=== PATIENT | male | born 1995 | race African-American/Black ===

== ENCOUNTER 2019-10-07 06:54 | Emergency (ER) | payer OTHER ==
[~2019-10-07] VITALS: Ht 185.4 cm; Wt 96.8 kg
[2019-10-07] MEDS ORDERED: tylenol (07:04)
[2019-10-07] MEDS ORDERED: GI COCKTAIL 50ML BTL(HYOSCYAMINE/MAALOX/LIDOCAINE VISCOUS)(1:3:1) PO ONE (07:30)
--- NOTE | 2019-10-07 08:04 | ECGEPIP ---
[facility] - ED Test Date: 2019-10-07 Pat Name: MICKEY EY Department: Room: - Gender: Male Assurance Senior Manager: GRANT : 1995 Requested By: SHANNAN KAPLAN Order Number: [id number] Reading MD: García Mejía Measurements Intervals [place] Rate: 63 P: [place]: 0 QRS: 97 QRSD: 156 T: -8 QT: 434 QTc: 444 Interpretive Statements ATRIAL FIBRILLATION vs JUNCTIONAL ESCAPE RHYTHM RIGHT BUNDLE BRANCH BLOCK Electronically Signed on 10-07-2019 8:04:10 EST by García Mejía
--- NOTE | 2019-10-07 08:06 | ECGEPIP ---
[facility] - ED Test Date: 2019-10-07 Pat Name: MICKEY YE Department: Room: - Gender: Male Service Associate: ILIANA : 1995 Requested By: SHANNAN KAPLAN Order Number: [id number] Reading MD: García Mejía Measurements Intervals [place] Rate: 58 P: [place]: 0 QRS: 91 QRSD: 161 T: -15 QT: 434 QTc: 430 Interpretive Statements ATRIAL FIBRILLATION WITH SLOW VENTRICULAR RESPONSE VS JUNCTIONAL ESCAPE RIGHT BUNDLE BRANCH BLOCK Electronically Signed on 10-07-2019 8:05:55 EST by García Mejía
[2019-10-07 08:24] LABS: BASO % 0.4 % (0.0-1.0); EOS % 0.9 % (0.0-3.0); HEMATOCRIT 45.7 % (42.0-52.0); HEMOGLOBIN 15.1 g/dl (13.5-17.5); LYMPH # 1.7 10^3/uL (1.5-5.0); LYMPH % 37.9 % (24.0-44.0); MEAN CORPUSCULAR HEMOGLOBIN 30.4 pg (27.0-33.0); MONO # 0.3 10^3/uL (0.0-0.8); MONO % 6.1 % (0.0-5.0); NEUTROPHILS # 2.5 10^3/uL (1.5-8.5); NEUTROPHILS % 54.3 % (36.0-66.0); PLATELET COUNT, AUTOMATED 269 10^3/uL (150-450); RED BLOOD COUNT 4.97 10^6/uL (4.30-6.10); WHITE BLOOD COUNT 4.6 10^3/uL (4.0-10.0)
[2019-10-07 08:53] LABS: ALBUMIN 3.9 GM/DL (3.2-5.2); ALT/SGPT 21 U/L (12-78); BILIRUBIN,DIRECT 0.1 MG/DL (0.0-0.2); BILIRUBIN,TOTAL 0.4 MG/DL (0.2-1.0); BLOOD UREA NITROGEN 12 MG/DL (7-18); CALCIUM LEVEL 8.6 MG/DL (8.5-10.1); CARBON DIOXIDE LEVEL 27 MEQ/L (21-32); CHLORIDE LEVEL 107 MEQ/L (98-107); CK-MB VALUE MASS 2.3 NG/ML (<3.6); CPK CREATINE PHOSPHOKINASE 522 U/L (39-308); GLOMERULAR FILTRATION RATE > 60.0 (>60); GLUCOSE, FASTING 102 MG/DL (70-100); LIPASE 156 U/L (73-393); MB/CK RELATIVE INDEX 0.44 (< OR =4); SODIUM LEVEL 139 MEQ/L (136-145); TOTAL PROTEIN 7.6 GM/DL (6.4-8.2); TROPONIN I < 0.02 NG/ML (< 0.10)
--- NOTE | 2019-10-07 08:57 | REP ---
Chest, TWO VIEWS: There is no evidence of acute infiltrate. No pleural effusion is seen. The heart is normal in size. The mediastinal silhouette is unremarkable. The visualized osseous structures are intact. IMPRESSION: No acute pulmonary disease. Electronically Signed by Tim Garcia MD 10/08/2019 01:26 P
[2019-10-07] MEDS ORDERED: NS 1,000 ML IV ONE (09:15)
[2019-10-07] MEDS ORDERED: METOCLOPRAMIDE INJ 10MG/2ML VIAL (J2765) IV ONE (09:15)
[2019-10-07] MEDS ORDERED: ISOVUE-370 76% 100ML VIAL (Q9967) As Ordered ONE (10:51)
--- NOTE | 2019-10-07 11:24 | REP ---
CT of the abdomen and pelvis with IV contrast, without bowel contrast for abdominal pain radiating to the back: There are no comparisons. The visualized lung rueda are unremarkable. There is a 11 mm hypodensity in the dome of the liver posteriorly vascular flow with the periphery, likely a small hemangioma. There is a second small hemangioma laterally in the dome of the liver measuring 7 ml. The hepatic parenchyma is otherwise homogeneous. There are multiple gallbladder calculi near the neck of the gallbladder. A few these calculi may have the proximal cystic duct. There is no intrahepatic or extrahepatic biliary duct dilation. The gallbladder is mildly distended. The pancreas and spleen are unremarkable. The adrenals are unremarkable. The kidneys are unremarkable. The abdominal aorta is unremarkable. There is no periaortic adenopathy or mass. There is no bowel distension. The mesentery is unremarkable. Pelvis: The appendix is unremarkable. There is no ascites or adenopathy. The bladder is unremarkable. The pelvic bowel loops are unremarkable. Impression: Cholelithiasis. A few of the gallbladder calculi. May been of the proximal cystic duct. The gallbladder is mildly distended. There is no intrahepatic or extrahepatic biliary duct dilatation. Small hemangiomas in the dome of the liver. Otherwise, essentially negative CT of the abdomen and pelvis. Electronically Signed by Tim Ivey MD 10/07/2019 11:15 A
[2019-10-07] MEDS ORDERED: NORC1TAB7 PO (13:29)
[2019-10-07] MEDS ORDERED: ONDA4TAB6 PO (13:29)
[2019-10-07 14:23] VITALS: BP 137/77
--- NOTE | 2019-10-07 14:24 | REP ---
GALLBLADDER ULTRASOUND: Real-time sonographic evaluation of the right upper quadrant performed. Gallstones are seen in the gallbladder. There is no gallbladder wall thickening or free fluid. There is no intrahepatic or extrahepatic biliary dilatation, common bile duct measuring 4 mm. Two hyperechoic nodules are seen at the dome of the liver measuring 1.3 and 1.4 cm in diameter. These are most consistent with hemangiomas. Pancreas cannot be visualized due to overlying bowel gas. Right kidney demonstrates no hydronephrosis with normal size 10.7 cm in length. IMPRESSION: Gallstones in the gallbladder without evidence of gallbladder wall thickening, pericholecystic fluid or biliary dilatation. Electronically Signed by Tim Garcia MD 10/08/2019 01:40 P
== END 2019-10-07 14:40 | disposition home or self-care (01) ==
LOC: M ED 06:54
DX: K80.20 Calculus of gallbladder without cholecystitis without obstruction (principal); R94.31 Abnormal electrocardiogram [ECG] [EKG]; F17.210 Nicotine dependence, cigarettes, uncomplicated
CPT/HCPCS: 71046; 74177; 76705; 80048; 80076; 82550; 82553; 83690; 84484; 85025; 93005; 93041; 96361; 96374; 99284; J2765; Q9967

== ENCOUNTER 2020-01-14 12:56 | Inpatient (IN) | payer OTHER ==
[~2020-01-14] VITALS: Ht 188 cm; Wt 97.7 kg
[~2020-01-14 12:56] MED LIST: NORC1TAB7 PO; ONDA4TAB6 PO; tylenol
[2020-01-14 13:39] LABS: HEMATOCRIT 45.9 % (42.0-52.0); HEMOGLOBIN 15.8 g/dl (13.5-17.5); MEAN CORPUSCULAR HEMOGLOBIN 31.1 pg (27.0-33.0); MEAN CORPUSCULAR HGB CONC 34.4 g/dl (32.0-36.5); MEAN CORPUSCULAR VOLUME 90.4 fl (80.0-96.0); PLATELET COUNT, AUTOMATED 255 10^3/uL (150-450); RED BLOOD COUNT 5.08 10^6/uL (4.30-6.10); WHITE BLOOD COUNT 4.9 10^3/uL (4.0-10.0)
--- NOTE | 2020-01-14 13:50 | REP ---
Head CT without contrast: History: New onset hallucinations. Comparison study: There is no comparison brain imaging. CT findings: Bone window settings demonstrate an intact bony calvarium. There is no evidence of skull fracture or incidental bony calvarial lesion. The visualized paranasal sinuses appear clear. No intraorbital abnormality is seen. On soft tissue window setting images; the lateral, third, and fourth ventricles are normal in size and position. Garcia-white differentiation pattern is normal above and below the tentorium. There are is no evidence of intracranial hemorrhage. No mass, edema, infarction, or midline shift is seen. No extra-axial fluid collection is appreciated. Impression: Negative noncontrast head CT. Electronically Signed by Tyree Torres MD 01/14/2020 01:41 P
[2020-01-14] MEDS ORDERED: ACET-907 PO (14:20)
[2020-01-14 14:21] LABS: ACETAMINOPHEN LEVEL < 2.0 UG/ML (10.0-30.0); ALBUMIN 4.1 GM/DL (3.2-5.2); ALT/SGPT 67 U/L (12-78); BILIRUBIN,DIRECT 0.2 MG/DL (0.0-0.2); BILIRUBIN,TOTAL 0.7 MG/DL (0.2-1.0); BLOOD UREA NITROGEN 12 MG/DL (7-18); CALCIUM LEVEL 9.4 MG/DL (8.5-10.1); CARBON DIOXIDE LEVEL 28 MEQ/L (21-32); CHLORIDE LEVEL 102 MEQ/L (98-107); CREATININE FOR GFR 1.06 MG/DL (0.70-1.30); ETHYL ALCOHOL (ETHANOL) < 0.003 % (0.000-0.010); GLOMERULAR FILTRATION RATE > 60.0 (>60); GLUCOSE, FASTING 115 MG/DL (70-100); SALICYLATE LEVEL 3.5 MG/DL (5.0-30.0); SODIUM LEVEL 137 MEQ/L (136-145); TOTAL PROTEIN 8.3 GM/DL (6.4-8.2)
[2020-01-14 14:29] LABS: AMPHETAMINES LEVEL URINE NEGATIVE (NEGATIVE); BARBITURATES URINE NEGATIVE (NEGATIVE); BENZODIAZEPINES URINE NEGATIVE (NEGATIVE); CANNABINOIDS URINE NEGATIVE (NEGATIVE); COCAINE METABOLITE URINE NEGATIVE (NEGATIVE); METHADONE URINE NEGATIVE (NEGATIVE); OPIATES URINE NEGATIVE (NEGATIVE); PHENCYCLIDINE URINE NEGATIVE (NEGATIVE)
[2020-01-14] MEDS ORDERED: OLANZapine ORAL DISINTEGRATING TAB 5MG PO PRN (17:45)
[2020-01-14] MEDS ORDERED: IBUPROFEN 400 MG TAB PO PRN (17:45)
[2020-01-14] MEDS ORDERED: MAALOX 30 ML SUSP *UDC PO PRN (17:45)
[2020-01-14] MEDS ORDERED: MOM 30ML SUSPENSION UDC PO PRN (17:45)
[2020-01-14 18:07] VITALS: BP 138/86
[2020-01-14] MEDS: traZODone 50 MG TAB PO PRN (20:52)
[2020-01-14] MEDS ORDERED: OLANZapine ORAL DISINTEGRATING TAB 5MG PO SCH (21:00)
[2020-01-15 06:10] VITALS: BP 127/72
--- NOTE | 2020-01-15 09:32 | MHHPEPDOC ---
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 He was found to be quite distorted and psychotic so much so that he was nearly impossible to interview. He continually talked about snakes "in his eyes" as well as seeing various objects around him. He was quite distorted and it was very difficult to understand any of what he was saying. He has no known history of any psychiatric involvement. Prior information is taken from the chart and extracted as much as able due to his inability to answer even basic questions on interview. Review Of Systems Unable to obtain, however, appears to be quite floridly psychotic. Past Psychiatric History No history of psychiatric involvement, inpatient admissions or suicide attempts can be found. Allergies Please see below. Family Psychiatric History Unknown. 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 Substance Abuse History Toxicology negative on admission. Medical History No notable medical history found. Mental Status Examination General: Poor hygiene Speech: Hyperverbal Thought processes: Tangential MSK: Smooth and coordinated gait, no signs of tremors or involuntary orofacial movements Thought content: Bizarre and paranoid Abstract reasoning, and computation: Impaired Description of associations: Impaired Description of abnormal or psychotic thoughts: As above. Judgment: Impaired. Insight: Impaired. Orientation: Alert and orientated 3 Cognition: Grossly normal Recent and remote memory: Intact Attention span and concentration: Impaired. Fund of knowledge: Unknown Mood: Flat with little reactivity Affect: Euthymic with a full range Diagnoses Unspecified psychosis. Schizophrenia? Assessment and Plan Unspecified psychosis: Continue Zyprexa 5 mg nightly, likely will increase to 10 to help continue his treatment as he is quite psychotic. Disposition Will need a further involuntary admission as he is quite psychotic and distorted, so much so that he is unable to engage in any meaningful discussion. Problem List 1. Altered thoughts. Initial Treatment Plan 1. Patient was admitted on a 9.39 legal status. 2. Complete history was obtained. 3. With patients permission, family will be contacted and database will be expanded. 4. Patients medication regimen will be reviewed and changed accordingly. 5. Patient will be provided with protected environment. 6. Patient will be treated with individual, group, and milieu therapies. 7. Patient will receive supportive psych-education. 8. Discharge planning will commence immediately. 9. Outpatient follow-up treatment will be strongly recommended. 10. The initial treatment plan will focus initially on: Estimated Length Of Stay 3 days. Time Spent 70 minutes with greater than 50% of time spent on counseling/coordination of care. Vital Signs Vital Signs Date Time Temp Pulse Resp B/P (MAP) Pulse Ox O2 Delivery O2 Flow Rate FiO2 01/15/20 06:10 98.4 90 12 127/72 (90) Room Air 01/14/20 18:07 100 Laboratory Data 24H Labs Laboratory Tests 2 01/14/20 13:29: Nucleated Red Blood Cells % (auto) 0.0, Anion Gap 7L, Glomerular Filtration Rate > 60.0, Calcium Level 9.4, Total Bilirubin 0.7, Direct Bilirubin 0.2, Aspartate Amino Transf (AST/SGOT) 34, Alanine Aminotransferase (ALT/SGPT) 67, Alkaline Phosphatase 75, Total Protein 8.3H, Albumin 4.1, Albumin/Globulin Ratio 0.98L, Thyroid Stimulating Hormone (TSH) 1.340, Salicylates Level 3.5L, Acetaminophen Level < 2.0L, Ethyl Alcohol Level < 0.003 01/14/20 13:52: Urine Opiates Screen NEGATIVE, Urine Methadone Screen NEGATIVE, Urine Barbiturates Screen NEGATIVE, Urine Phencyclidine Screen NEGATIVE, Urine Amphe tamines Screen NEGATIVE, Urine Benzodiazepines Screen NEGATIVE, Urine Cocaine Metabolite Screen NEGATIVE, Urine Cannabinoids Screen NEGATIVE CBC/BMP Laboratory Tests 01/14/20 13:29 Medications Scheduled PRN Acetaminophen (Tylenol) 325 Mg Tablet, 650 MG PO Q6H PRN for PAIN, (Reported) Allergies Coded Allergies: No Known Allergies (Unverified , 10/07/19) QUENTIN PARHAM DO January 15, 2020 09:32
--- NOTE | 2020-01-15 12:53 | HPEPDOC ---
General Date of Admission January 14, 2020 at 17:32 Date of Service: January 15, 2020 Chief Complaint The patient is a 24-year-old male admitted with a reason for visit of Unspecified Psychotic Disorder. 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 I am seeing the patient for medical history and physical. He denied any medical complaints today. Just says that he is very sleepy. Home Medications Scheduled PRN Acetaminophen (Tylenol) 325 Mg Tablet, 650 MG PO Q6H PRN for PAIN, (Reported) Allergies Coded Allergies: No Known Allergies (Unverified , 10/07/19) Past Medical History Medical History None Surgical History None Family History Significant Family History: No pertinent family hx discussed with patient Social History * Smoker: current smoker Alcohol: occationally (on weekends) Drugs: denies A-FIB/CHADSVASC A-FIB History Current/History of A-Fib/PAF?: No Review of Systems Constitutional: Reports: Fatigue; Denies: Chills, Fever, Night Sweats Eyes: Denies: Pain, Vision change ENT: Denies: Head Aches, Ear Pain, Dysphagia Skin: Denies: Rash, Lesions, Breakdown Pulmonary: Denies: Dyspnea, Cough Cardiovascular: Denies: Chest Pain, Palpitations, Orthopnea, Paroxysmal Noc. Dyspnea, Lt Headedness Gastrointestinal: Denies: Nausea, Vomiting, Abdominal Pain, Diarrhea Genitourinary: Denies: Dysuria, Frequency, Incontinence, Retention Hematologic: Denies: Bruising, Bleeding Excessively Physical Examination General Exam: Positive: Alert, Cooperative, No Acute Distress Eye Exam: Positive: PERRLA, Conjunctiva & lids normal, EOMI; Negative: Sclera icteric ENT Exam: Positive: Atraumatic, Mucous membr. moist/pink, Pharynx Normal Neck Exam: Positive: Supple; Negative: JVD, thyromegaly Chest Exam: Positive: Clear to auscultation, Normal air movement Heart Exam: Positive: Rate Normal, Regular Rhythm, Normal S1, Normal S2; Negative: Murmurs, Rubs Abdomen Exam: Positive: Normal bowel sounds, Soft; Negative: Tenderness, Hepatospenomegaly Extremity Exam: Positive: Normal pulses; Negative: Clubbing, Cyanosis, Edema Vital Signs Vital Signs Date Time Temp Pulse Resp B/P (MAP) Pulse Ox O2 Delivery O2 Flow Rate FiO2 01/15/20 06:10 98.4 90 12 127/72 (90) Room Air 01/14/20 18:07 100 Laboratory Data Labs 24H Laboratory Tests 2 01/14/20 13:29: Nucleated Red Blood Cells % (auto) 0.0, Anion Gap 7L, Glomerular Filtration Rate > 60.0, Calcium Level 9.4, Total Bilirubin 0.7, Direct Bilirubin 0.2, Aspartate Amino Transf (AST/SGOT) 34, Alanine Aminotransferase (ALT/SGPT) 67, Alkaline Phosphatase 75, Total Protein 8.3H, Albumin 4.1, Albumin/Globulin Ratio 0.98L, Thyroid Stimulating Hormone (TSH) 1.340, Salicylates Level 3.5L, Acetaminophen Level < 2.0L, Ethyl Alcohol Level < 0.003 01/14/20 13:52: Urine Opiates Screen NEGATIVE, Urine Methadone Screen NEGATIVE, Urine Barbiturates Screen NEGATIVE, Urine Phencyclidine Screen NEGATIVE, Urine Amphetamines Screen NEGATIVE, Urine Benzodiazepines Screen NEGATIVE, Urine Cocaine Metabolite Screen NEGATIVE, Urine Cannabinoids Screen NEGATIVE CBC/BMP Laboratory Tests 01/14/20 13:29 Assessment/Plan 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 I am seeing the patient for medical history and physical. He denied any medical complaints today. Psych issues as per psychiatry No medical issues at this time will sign off. Plan / VTE VTE Prophylaxis Ordered?: No SHILPI MORGAN MD January 15, 2020 12:53
[2020-01-15 16:04] VITALS: BP 108/56
[2020-01-15] MEDS: traZODone 50 MG TAB PO PRN (20:57)
[2020-01-15] MEDS: OLANZapine ORAL DISINTEGRATING TAB 5MG PO SCH (20:58)
[2020-01-16 06:08] VITALS: BP 110/63
--- NOTE | 2020-01-16 09:56 | MHIPNPDOC ---
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 He was found to be quite distorted and psychotic so much so that he was nearly impossible to interview. He continually talked about snakes "in his eyes" as well as seeing various objects around him. He was quite distorted and it was very difficult to understand any of what he was saying. He has no known history of any psychiatric involvement. Prior information is taken from the chart and extracted as much as able due to his inability to answer even basic questions on interview. Interval History The patient is met with today. He reports he is feeling much less paranoid and reports that his feelings of snakes being after him is much improved. He has had no behavioral problems overnight and has been less paranoid with staff and interactions. He saw as quite a bit of paranoia and it's difficult for him to engage fully in any review of his complex systems. Review Of Systems Unable to obtain, however, appears to be quite floridly psychotic. Psychotherapy None on this visit. Vital Signs Reviewed. Mental Status Examination General: Poor hygiene Speech: Hyperverbal Thought processes: Tangential MSK: Smooth and coordinated gait, no signs of tremors or involuntary orofacial movements Thought content: Bizarre and paranoid Abstract reasoning, and computation: Impaired Description of associations: Impaired Description of abnormal or psychotic thoughts: As above. Judgment: Impaired. Insight: Impaired. Orientation: Alert and orientated 3 Cognition: Grossly normal Recent and remote memory: Intact Attention span and concentration: Impaired. Fund of knowledge: Unknown Mood: "Fine" Affect: Flat with little reactivity Diagnoses Unspecified psychosis. Schizophrenia? Assessment and Plan Unspecified psychosis: Continue Zyprexa 10 mg nightly. Disposition Patient will need a further inpatient admission. If he continues to make improvements over the weekend he potentially could go home early next week. Time Spent 15 minutes. Sunday Vital Signs Vital Signs Date Time Temp Pulse Resp B/P (MAP) Pulse Ox O2 Delivery O2 Flow Rate FiO2 01/16/20 06:08 98.4 89 12 110/63 (79) 99 Room Air Current Medications Current Medications Medications (Trade) Dose Ordered Sig/Duglas Route PRN Reason Start Time Stop Time Status Last Admin Dose Admin Al Hydrox/Mg Hydrox/Simethicone (Mylanta) 30 ml Q4HP PRN PO HEARTBURN/INDIGESTION 01/14/20 17:45 Home Med (Med Rec Complete!) ASDIRECTED XX 01/14/20 14:30 01/14/20 14:21 DC Ibuprofen (Advil) 400 mg Q6HP PRN PO PAIN 01/14/20 17:45 Magnesium Hydroxide (Milk Of Magnesia) 30 ml DAILYPRN PRN PO CONSTIPATION 01/14/20 17:45 Olanzapine (ZyPREXA ZYDIS) 5 mg Q4HP PRN PO AGITATION 01/14/20 17:45 Olanzapine (ZyPREXA ZYDIS) 5 mg QHS PO 01/14/20 21:00 01/15/20 10:15 DC 01/14/20 20:52 Olanzapine (ZyPREXA ZYDIS) 10 mg QHS PO 01/15/20 21:00 01/15/20 20:58 Trazodone HCl (Desyrel) 50 mg QHSP PRN PO INSOMNIA 01/14/20 17:45 01/15/20 20:57 Allergies Coded Allergies: No Known Allergies (Unverified , 10/07/19) QUENTIN PARHAM DO January 16, 2020 09:56
[2020-01-16] MEDS: OLANZapine ORAL DISINTEGRATING TAB 5MG PO SCH (21:13)
[2020-01-17 06:35] VITALS: BP 113/66
--- NOTE | 2020-01-17 11:51 | MHIPNPDOC ---
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 He was found to be quite distorted and psychotic so much so that he was nearly impossible to interview. He continually talked about snakes "in his eyes" as well as seeing various objects around him. He was quite distorted and it was very difficult to understand any of what he was saying. He has no known history of any psychiatric involvement. Prior information is taken from the chart and extracted as much as able due to his inability to answer even basic questions on interview. Interval History The patient is met with today. He reports that he does have some fatigue from h is olanzapine but otherwise has no other problems from his medications. He reports that the snakes are much more "softer" and he is having less internal monologue. He is certainly still quite psychotic but as much less so than yesterday. He has had no behavioral problems overnight. Review Of Systems Denies any physical side effects from his medication. Psychotherapy None on this visit. Vital Signs Reviewed. Mental Status Examination General: Poor hygiene Speech: Hyperverbal Thought processes: Tangential MSK: Smooth and coordinated gait, no signs of tremors or involuntary orofacial movements Thought content: Bizarre and paranoid Abstract reasoning, and computation: Impaired Description of associations: Impaired Description of abnormal or psychotic thoughts: As above. Judgment: Impaired. Insight: Impaired. Orientation: Alert and orientated 3 Cognition: Grossly normal Recent and remote memory: Intact Attention span and concentration: Impaired. Fund of knowledge: Unknown Mood: "Fine" Affect: Flat with little reactivity Diagnoses Unspecified psychosis. Schizophrenia? Assessment and Plan Unspecified psychosis: Split Zyprexa to 5 mg BID in order to reduce fatigue. Disposition Patient will need a further inpatient admission. If he continues to make improvements over the weekend he potentially could go home early next week. Time Spent 15 minutes. Sunday Vital Signs Vital Signs Date Time Temp Pulse Resp B/P (MAP) Pulse Ox O2 Delivery O2 Flow Rate FiO2 01/17/20 06:35 98.2 82 12 113/66 (82) 99 Room Air Current Medications Current Medications Medications (Trade) Dose Ordered Sig/Duglas Route PRN Reason Start Time Stop Time Status Last Admin Dose Admin Al Hydrox/Mg Hydrox/Simethicone (Mylanta) 30 ml Q4HP PRN PO HEARTBURN/INDIGESTION 01/14/20 17:45 Home Med (Med Rec Complete!) ASDIRECTED XX 01/14/20 14:30 01/14/20 14:21 DC Ibuprofen (Advil) 400 mg Q6HP PRN PO PAIN 01/14/20 17:45 Magnesium Hydroxide (Milk Of Magnesia) 30 ml DAILYPRN PRN PO CONSTIPATION 01/14/20 17:45 Olanzapine (ZyPREXA ZYDIS) 5 mg Q4HP PRN PO AGITATION 01/14/20 17:45 Olanzapine (ZyPREXA ZYDIS) 5 mg QHS PO 01/14/20 21:00 01/15/20 10:15 DC 01/14/20 20:52 Olanzapine (ZyPREXA ZYDIS) 10 mg QHS PO 01/15/20 21:00 01/16/20 21:13 Trazodone HCl (Desyrel) 50 mg QHSP PRN PO INSOMNIA 01/14/20 17:45 01/15/20 20:57 Allergies Coded Allergies: No Known Allergies (Unverified , 10/07/19) QUENTIN PARHAM DO January 17, 2020 11:51
[2020-01-17 16:17] VITALS: BP 133/60
[2020-01-17] MEDS: OLANZapine ORAL DISINTEGRATING TAB 5MG PO SCH (22:05)
[2020-01-18 06:34] VITALS: BP_SYST 132; BP_SYST 173; BP_DIAS 75; BP_DIAS 88
[2020-01-18] MEDS: OLANZapine ORAL DISINTEGRATING TAB 5MG PO SCH ×2 (09:00→21:44)
--- NOTE | 2020-01-18 11:36 | MHIPNPDOC ---
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 He was found to be quite distorted and psychotic so much so that he was nearly impossible to interview. He continually talked about snakes "in his eyes" as well as seeing various objects around him. He was quite distorted and it was very difficult to understand any of what he was saying. He has no known history of any psychiatric involvement. Prior information is taken from the chart and extracted as much as able due to his inability to answer even basic questions on interview. Interval History The patient is met with today. He reports less hallucinations but still quite paranoid and distorted. He reports snakes and having various experiences. He generally not engaged well in the interview, but has not had significant behavioral problems although he has refused his Zyprexa this morning. He has no complaints. Review Of Systems Denies grossly any physical complaints today. He does report some sedation from Zyprexa. Psychotherapy None on this visit. Vital Signs Reviewed. Mental Status Examination General: Poor hygiene Speech: Hyperverbal Thought processes: Tangential MSK: Smooth and coordinated gait, no signs of tremors or involuntary orofacial movements Thought content: Bizarre and paranoid Abstract reasoning, and computation: Impaired Description of associations: Impaired Description of abnormal or psychotic thoughts: As above. Judgment: Impaired. Insight: Impaired. Orientation: Alert and orientated 3 Cognition: Grossly normal Recent and remote memory: Intact Attention span and concentration: Impaired. Fund of knowledge: Unknown Mood: "Fine" Affect: Flat with little reactivity Diagnoses Unspecified psychosis. Schizophrenia? Assessment and Plan Continue Zyprexa to 5 mg BID with 5 mg PRN q4. Disposition Patient will need a further inpatient admission. If he continues to make improvements over the weekend he potentially could go home early next week. Time Spent 15 minutes Sunday Vital Signs Vital Signs Date Time Temp Pulse Resp B/P (MAP) Pulse Ox O2 Delivery O2 Flow Rate FiO2 01/18/20 06:34 98.0 73 16 132/88 (103) 97 Room Air Current Medications Current Medications Medications (Trade) Dose Ordered Sig/Duglas Route PRN Reason Start Time Stop Time Status Last Admin Dose Admin Al Hydrox/Mg Hydrox/Simethicone (Mylanta) 30 ml Q4HP PRN PO HEARTBURN/INDIGESTION 01/14/20 17:45 Home Med (Med Rec Complete!) ASDIRECTED XX 01/14/20 14:30 01/14/20 14:21 DC Ibuprofen (Advil) 400 mg Q6HP PRN PO PAIN 01/14/20 17:45 Magnesium Hydroxide (Milk Of Magnesia) 30 ml DAILYPRN PRN PO CONSTIPATION 01/14/20 17:45 Olanzapine (ZyPREXA ZYDIS) 5 mg Q4HP PRN PO AGITATION 01/14/20 17:45 Olanzapine (ZyPREXA ZYDIS) 5 mg QAM PO 01/18/20 09:00 Olanzapine (ZyPREXA ZYDIS) 5 mg QHS PO 01/14/20 21:00 01/15/20 10:15 DC 01/14/20 20:52 Olanzapine (ZyPREXA ZYDIS) 5 mg QHS PO 01/17/20 21:00 01/17/20 22:05 Olanzapine (ZyPREXA ZYDIS) 10 mg QHS PO 01/15/20 21:00 01/17/20 14:03 DC 01/16/20 21:13 Trazodone HCl (Desyrel) 50 mg QHSP PRN PO INSOMNIA 01/14/20 17:45 01/15/20 20:57 Allergies Coded Allergies: No Known Allergies (Unverified , 10/07/19) QUENTIN PARHAM DO January 18, 2020 11:36
[2020-01-18] MEDS ORDERED: NICOTINE POLACRILEX 2 MG GUM PO PRN (13:30)
[2020-01-18 15:30] VITALS: BP 130/74
[2020-01-18] MEDS: traZODone 50 MG TAB PO PRN (21:44)
[2020-01-19 06:27] VITALS: BP 144/66
[2020-01-19] MEDS: OLANZapine ORAL DISINTEGRATING TAB 5MG PO SCH ×2 (09:14→20:54)
--- NOTE | 2020-01-19 09:51 | MHIPNPDOC ---
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 He was found to be quite distorted and psychotic so much so that he was nearly impossible to interview. He continually talked about snakes "in his eyes" as well as seeing various objects around him. He was quite distorted and it was very difficult to understand any of what he was saying. He has no known history of any psychiatric involvement. Prior information is taken from the chart and extracted as much as able due to his inability to answer even basic questions on interview. Interval History The patient is met with today. He is making good progress, becoming less parano id and reports that the "snakes" are much less problematic and he is less worried about snakes keeping him up. He reports that he is tolerating the Zyprexa well with only some sedation. He has had no behavioral problems and has utilized his PRNs as needed. Review Of Systems Cardiovascular: Denies Chest pain or palpations GI: Denies Nausea, vomiting, or bowel changes Respiratory: Denies shortness of breath or cough Neuro: Denies dizziness, tremors Derm: Denies any rashes or pruritus : Denies any dysuria or urinary problems MSK: Denies any muscle tightness or stiffness Psychotherapy None on this visit. Vital Signs Reviewed. Mental Status Examination General: Poor hygiene Speech: Hyperverbal Thought processes: More linear MSK: Smooth and coordinated gait, no signs of tremors or involuntary orofacial movements Thought content: Less bizarre Abstract reasoning, and computation: Impaired Description of associations: Impaired Description of abnormal or psychotic thoughts: As above. Judgment: Mildy improved. Insight: Mildy improved. Orientation: Alert and orientated 3 Cognition: Grossly normal Recent and remote memory: Intact Attention span and concentration: Impaired. Fund of knowledge: Unknown Mood: "Fine" Affect: Less flat Diagnoses Unspecified psychosis. Schizophrenia? Assessment and Plan Continue Zyprexa to 5 mg BID with 5 mg PRN Q 4. Disposition Patient making improvement, hopefully will be able to be discharged mid-to-late week if continued improvement. Time Spent 15 minutes Sunday Vital Signs Vital Signs Date Time Temp Pulse Resp B/P (MAP) Pulse Ox O2 Delivery O2 Flow Rate FiO2 01/19/20 06:27 97.3 67 16 144/66 (92) 01/18/20 06:34 97 Room Air Current Medications Current Medications Medications (Trade) Dose Ordered Sig/Duglas Route PRN Reason Start Time Stop Time Status Last Admin Dose Admin Al Hydrox/Mg Hydrox/Simethicone (Mylanta) 30 ml Q4HP PRN PO HEARTBURN/INDIGESTION 01/14/20 17:45 Home Med (Med Rec Complete!) ASDIRECTED XX 01/14/20 14:30 01/14/20 14:21 DC Ibuprofen (Advil) 400 mg Q6HP PRN PO PAIN 01/14/20 17:45 Magnesium Hydroxide (Milk Of Magnesia) 30 ml DAILYPRN PRN PO CONSTIPATION 01/14/20 17:45 Nicotine (Nicorette) 4 mg Q2HP PRN PO NICOTINE WITHDRAWAL 01/18/20 13:30 Olanzapine (ZyPREXA ZYDIS) 5 mg Q4HP PRN PO AGITATION 01/14/20 17:45 01/18/20 13:25 Olanzapine (ZyPREXA ZYDIS) 5 mg QAM PO 01/18/20 09:00 01/19/20 09:14 Olanzapine (ZyPREXA ZYDIS) 5 mg QHS PO 01/14/20 21:00 01/15/20 10:15 DC 01/14/20 20:52 Olanzapine (ZyPREXA ZYDIS) 5 mg QHS PO 01/17/20 21:00 01/18/20 21:44 Olanzapine (ZyPREXA ZYDIS) 10 mg QHS PO 01/15/20 21:00 01/17/20 14:03 DC 01/16/20 21:13 Trazodone HCl (Desyrel) 50 mg QHSP PRN PO INSOMNIA 01/14/20 17:45 01/18/20 21:44 Allergies Coded Allergies: No Known Allergies (Unverified , 10/07/19) QUENTIN PARHAM DO January 19, 2020 09:51
[2020-01-19 16:41] VITALS: BP 137/71
[2020-01-19] MEDS: traZODone 50 MG TAB PO PRN (20:54)
[2020-01-20 06:24] VITALS: BP 126/77
[2020-01-20] MEDS: OLANZapine ORAL DISINTEGRATING TAB 5MG PO SCH ×2 (09:09→21:11)
--- NOTE | 2020-01-20 09:23 | MHIPNPDOC ---
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 He was found to be quite distorted and psychotic so much so that he was nearly impossible to interview. He continually talked about snakes "in his eyes" as well as seeing various objects around him. He was quite distorted and it was very difficult to understand any of what he was saying. He has no known history of any psychiatric involvement. Prior information is taken from the chart and extracted as much as able due to his inability to answer even basic questions on interview. Interval History The patient is met with today. He reports he is doing better, feeling less dis turbed and less paranoid. He does have some episodes where he talks about snakes, but reports that they are improving and he is less worried about them. No problems overnight. Review Of Systems General: Denies fever or appetite changes Cardiovascular: Denies Chest pain or palpations GI: Denies Nausea, vomiting, or bowel changes Respiratory: Denies shortness of breath or cough Neuro: Denies dizziness, tremors Derm: Denies any rashes or pruritus : Denies any dysuria or urinary problems MSK: Denies any muscle tightness or stiffness HEENT: Denies any vision changes or headaches Psychotherapy None on this visit. Vital Signs Reviewed. Mental Status Examination General: Improved hygiene Speech: More fluid Thought processes: More linear MSK: Smooth and coordinated gait, no signs of tremors or involuntary orofacial movements Thought content: Less bizarre Abstract reasoning, and computation: Impaired Description of associations: Impaired Description of abnormal or psychotic thoughts: As above. Judgment: Mildy improved. Insight: Mildy improved. Orientation: Alert and orientated 3 Cognition: Grossly normal Recent and remote memory: Intact Attention span and concentration: Impaired. Fund of knowledge: Unknown Mood: "Fine" Affect: Less flat Diagnoses Unspecified psychosis. Schizophrenia? Assessment and Plan Continue Zyprexa to 5 mg BID with 5 mg PRN Q 4. Disposition We will continue to observe possible discharge or Sunday if continues to improve in terms of paranoia Time Spent 15 minutes Sunday Vital Signs Vital Signs Date Time Temp Pulse Resp B/P (MAP) Pulse Ox O2 Delivery O2 Flow Rate FiO2 01/20/20 06:24 97.4 67 12 126/77 (93) Room Air 01/18/20 06:34 97 Current Medications Current Medications Medications (Trade) Dose Ordered Sig/Duglas Route PRN Reason Start Time Stop Time Status Last Admin Dose Admin Al Hydrox/Mg Hydrox/Simethicone (Mylanta) 30 ml Q4HP PRN PO HEARTBURN/INDIGESTION 01/14/20 17:45 Home Med (Med Rec Complete!) ASDIRECTED XX 01/14/20 14:30 01/14/20 14:21 DC Ibuprofen (Advil) 400 mg Q6HP PRN PO PAIN 01/14/20 17:45 Magnesium Hydroxide (Milk Of Magnesia) 30 ml DAILYPRN PRN PO CONSTIPATION 01/14/20 17:45 Nicotine (Nicorette) 4 mg Q2HP PRN PO NICOTINE WITHDRAWAL 01/18/20 13:30 Olanzapine (ZyPREXA ZYDIS) 5 mg Q4HP PRN PO AGITATION 01/14/20 17:45 01/18/20 13:25 Olanzapine (ZyPREXA ZYDIS) 5 mg QAM PO 01/18/20 09:00 01/20/20 09:09 Olanzapine (ZyPREXA ZYDIS) 5 mg QHS PO 01/14/20 21:00 01/15/20 10:15 DC 01/14/20 20:52 Olanzapine (ZyPREXA ZYDIS) 5 mg QHS PO 01/17/20 21:00 01/19/20 20:54 Olanzapine (ZyPREXA ZYDIS) 10 mg QHS PO 01/15/20 21:00 01/17/20 14:03 DC 01/16/20 21:13 Trazodone HCl (Desyrel) 50 mg QHSP PRN PO INSOMNIA 01/14/20 17:45 01/19/20 20:54 Allergies Coded Allergies: No Known Allergies (Unverified , 10/07/19) QUENTIN PARHAM DO January 20, 2020 09:23
[2020-01-20 16:03] VITALS: BP 118/61
[2020-01-20] MEDS: traZODone 50 MG TAB PO PRN (21:11)
[2020-01-21 06:09] VITALS: BP 135/58
[2020-01-21] MEDS: OLANZapine ORAL DISINTEGRATING TAB 5MG PO SCH ×2 (08:29→21:01)
--- NOTE | 2020-01-21 09:59 | MHIPNPDOC ---
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 He was found to be quite distorted and psychotic so much so that he was nearly impossible to interview. He continually talked about snakes "in his eyes" as well as seeing various objects around him. He was quite distorted and it was very difficult to understand any of what he was saying. He has no known history of any psychiatric involvement. Prior information is taken from the chart and extracted as much as able due to his inability to answer even basic questions on interview. Interval History The patient was met with today. He reports he is doing much better and he has been making some progress on the Zyprexa with less fearful thoughts relating to the snakes. He does report cultural beliefs about snakes and being cursed at times. He has reported this to nurses and has been somewhat odd with some mild paranoia but has had no behavioral problems and he is generally amenable to all staff interventions. Review Of Systems General: Denies fever or appetite changes Cardiovascular: Denies Chest pain or palpations GI: Denies Nausea, vomiting, or bowel changes Respiratory: Denies shortness of breath or cough Neuro: Denies dizziness, tremors Derm: Denies any rashes or pruritus : Denies any dysuria or urinary problems MSK: Denies any muscle tightness or stiffness HEENT: Denies any vision changes or headaches Psychotherapy None on this visit. Vital Signs Reviewed. Mental Status Examination General: Improved hygiene Speech: More fluid Thought processes: Linear MSK: Smooth and coordinated gait, no signs of tremors or involuntary orofacial movements Thought content: Much less bizarre thoughts. Abstract reasoning, and computation: Improved. Description of associations: Impaired Description of abnormal or psychotic thoughts: Denies any suicidal or homicidal ideation as well as auditory or visual hallucinations. Judgment: Improved. Insight: Improved. Orientation: Alert and orientated 3 Cognition: Grossly normal Recent and remote memory: Intact Attention span and concentration: Impaired. Fund of knowledge: Unknown Mood: "Fine" Affect: More euthymic. Diagnoses Unspecified psychosis. Schizophrenia? Assessment and Plan Continue Zyprexa to 5 mg BID with 5 mg PRN Q 4. Disposition Patient will be further evaluated; however, he will likely improve well enough to be discharged tomorrow if he continues to improve. His overvalued ideas about snakes and his culture appear to be in elaboration of cultural values to some degree; however, he will unlikely meat involuntary criteria tomorrow if he does not act out. Time Spent 15 minutes. Sunday Vital Signs Vital Signs Date Time Temp Pulse Resp B/P (MAP) Pulse Ox O2 Delivery O2 Flow Rate FiO2 01/21/20 06:09 97.8 73 16 135/58 (83) 01/20/20 06:24 Room Air 01/18/20 06:34 97 Current Medications Current Medications Medications (Trade) Dose Ordered Sig/Duglas Route PRN Reason Start Time Stop Time Status Last Admin Dose Admin Al Hydrox/Mg Hydrox/Simethicone (Mylanta) 30 ml Q4HP PRN PO HEARTBURN/INDIGESTION 01/14/20 17:45 Home Med (Med Rec Complete!) ASDIRECTED XX 01/14/20 14:30 01/14/20 14:21 DC Ibuprofen (Advil) 400 mg Q6HP PRN PO PAIN 01/14/20 17:45 Magnesium Hydroxide (Milk Of Magnesia) 30 ml DAILYPRN PRN PO CONSTIPATION 01/14/20 17:45 Nicotine (Nicorette) 4 mg Q2HP PRN PO NICOTINE WITHDRAWAL 01/18/20 13:30 Olanzapine (ZyPREXA ZYDIS) 5 mg Q4HP PRN PO AGITATION 01/14/20 17:45 01/18/20 13:25 Olanzapine (ZyPREXA ZYDIS) 5 mg QAM PO 01/18/20 09:00 01/21/20 08:29 Olanzapine (ZyPREXA ZYDIS) 5 mg QHS PO 01/14/20 21:00 01/15/20 10:15 DC 01/14/20 20:52 Olanzapine (ZyPREXA ZYDIS) 5 mg QHS PO 01/17/20 21:00 01/20/20 21:11 Olanzapine (ZyPREXA ZYDIS) 10 mg QHS PO 01/15/20 21:00 01/17/20 14:03 DC 01/16/20 21:13 Trazodone HCl (Desyrel) 50 mg QHSP PRN PO INSOMNIA 01/14/20 17:45 01/20/20 21:11 Allergies Coded Allergies: No Known Allergies (Unverified , 10/07/19) QUENTIN PARHAM DO January 21, 2020 09:59
[2020-01-21 16:04] VITALS: BP 113/60
[2020-01-21] MEDS: traZODone 50 MG TAB PO PRN (21:01)
[2020-01-22 06:36] VITALS: BP 118/65
[2020-01-22] MEDS: OLANZapine ORAL DISINTEGRATING TAB 5MG PO SCH (08:52)
--- NOTE | 2020-01-22 09:54 | MHDSPDOC ---
[facility] Discharge Summary Discharge Summary DATE OF ADMISSION: January 14, 2020 at 17:32 DATE OF DISCHARGE: 01/22/2020 Discharge Victor Hugo Maxwell MRN: N/A Date of : N/A Date of Service: 01/22/2020 Diagnoses Unspecified psychosis. Schizophrenia? 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 He was found to be quite distorted and psychotic so much so that he was nearly impossible to interview. He continually talked about snakes "in his eyes" as well as seeing various objects around him. He was quite distorted and it was very difficult to understand any of what he was saying. He has no known history of any psychiatric involvement. Prior information is taken from the chart and extracted as much as able due to his inability to answer even basic questions on interview. Consultants Involved Hospitalist/PCP screening Treatment and Progress On The Unit The patient was admitted to the inpatient mental health unit notably psychotic. He was started on Zyprexa 5 mg nightly increased to 5 mg BID with positive e ffects. He had some initial sedation on 10 mg nightly and was subsequently changed to a spread out dose with positive effects. He initially was quite psychotic, focused on various snakes; however, these thoughts leveled out and became much less problematic. The patient reportedly had a good improvement in his thinking process, became more engaged although he had some unusual overva lued ideas by the end. These had not been impairing his ability to tend to his needs or making him violent or aggressive. Discharge Assessment 24-year-old man with no psychiatric history presents with some psychotic symptoms with no toxicology. He is treated with Zyprexa and appears to do well with these thoughts becoming much less prominent. The patient at the time of discharge did not meet criteria for involuntary admission/extension due to having an improved mental status exam, fair insight into the situation, They are engaged in the discharge process, as well as being friendly and amenable in behavioral control and havent been engaging in any observed concerning behavior or ideation recently. They decline voluntary extension/admission at this time and must be discharged in good ebenezer, as Im unable to make a case for holding the patient against their will. They may have historical risk factors of admissions and other interactions with psychiatry however, those are not modifiable from a clinical perspective. The patient will need to be discharged in good ebenezer. Mental Status Examination General: Well dressed with good hygiene Speech: Spontaneous and fluid Thought processes: Linear and logical MSK: Smooth and coordinated gait, no signs of tremors or involuntary orofacial movements Thought content: Few overvalued ideas but no overt paranoia. Abstract reasoning, and computation: Intact Description of associations: Intact Description of abnormal or psychotic thoughts: Denies any suicidal or homicidal ideation. Denies any auditory or visual hallucinations. Does not appear to be responding to internal stimuli. Does not appear to be endorsing any bizarre or paranoid ideation. Judgment: fair Insight: fair Orientation: Alert and orientated 3 Cognition: Grossly normal Recent and remote memory: Intact Attention span and concentration: Intact Fund of knowledge: Adequate Mood: "okay" Affect: Euthymic with a full range Follow Up The social work team worked during the predischarge meeting in order to evaluate for further issues of lethality address them fully before discharge. They worked on safety planning with the patient's family members in order to ensure that the patient will have a safe and effective discharge. Time Spent The amount of time spent in the coordination of care for this patient was approximately 45 minutes. Vital Signs/I&Os Vital Signs Date Time Temp Pulse Resp B/P (MAP) Pulse Ox O2 Delivery O2 Flow Rate FiO2 01/22/20 06:36 97.1 67 14 118/65 (82) 01/20/20 06:24 Room Air 01/18/20 06:34 97 Medications Scheduled Olanzapine (Olanzapine) 5 Mg Tablet, 1 TAB PO BID for thoughts for 7 Days, #14 Allergies Coded Allergies: No Known Allergies (Unverified , 10/07/19) QUENTIN PARHAM DO January 22, 2020 09:54
[2020-01-22] MEDS ORDERED: OLAN5TAB PO (10:06)
--- NOTE | 2020-01-22 18:11 | ECGEPIP ---
[facility] Test Date: 2020-01-21 Pat Name: MICKEY YE Department: Room: [place] [address] Gender: Male Administrative Support Assistant: TWAN : [id number] Requested By: QUENTIN PARHAM Order Number: [id number] Reading MD: Adarsh Kim Measurements Intervals [place] Rate: 70 P: 57 TN: 160 QRS: 55 QRSD: 157 T: 16 QT: 397 QTc: 430 Interpretive Statements SINUS RHYTHM RIGHT BUNDLE BRANCH BLOCK COMPARED TO 10/07/19 EPISODE OF JUNCTIONAL RHYTHM IS NO LONGER PRESENT Electronically Signed on 01-22-2020 18:10:38 EDT by Adarsh Kim
== END 2020-01-22 11:00 | disposition home or self-care (01) | DRG 885 ==
LOC: M ED 12:56 → M ED INP 17:32 → M PSY 18:13
PROVIDERS: ADMIT Psychiatry & Neurology Addiction Medicine; ATTEND Psychiatry & Neurology Addiction Medicine
DX: F29 Unspecified psychosis not due to a substance or known physiological condition (principal); F20.9 Schizophrenia, unspecified; F17.200 Nicotine dependence, unspecified, uncomplicated

== ENCOUNTER 2020-04-21 16:20 | Inpatient (IN) | payer OTHER ==
[~2020-04-21 16:20] MED LIST changes: +ACET-907 PO; +OLAN5TAB PO
[2020-04-21] MEDS ORDERED: PALIPERIDONE 3 MG ER TAB (INVEGA) ONE (20:30)
[2020-04-21] MEDS ORDERED: OLANZapine ORAL DISINTEGRATING TAB 5MG ONE (20:30)
[2020-04-22] MEDS ORDERED: ACETAMINOPHEN TAB 650MG DOSE (2X325MG) ONE (13:00)
[2020-04-22] MEDS ORDERED: ACETAMINOPHEN TAB 650MG DOSE (2X325MG) As Ordered ONE (13:15)
[2020-04-22] MEDS ORDERED: PALIPERIDONE 3 MG ER TAB (INVEGA) As Ordered ONE (21:05)
[2020-04-23] MEDS ORDERED: NICOTINE 21MG/24HR 1 EA TRANSDERMAL As Ordered ONE (11:18)
[2020-04-23] MEDS ORDERED: NICOTINE 21MG/24HR 1 EA TRANSDERMAL ONE (11:20)
[2020-04-23] MEDS ORDERED: PALIPERIDONE 3 MG ER TAB (INVEGA) As Ordered ONE (20:48)
[2020-04-23] MEDS ORDERED: OLANZapine ORAL DISINTEGRATING TAB 5MG As Ordered ONE (20:49)
[2020-04-24] MEDS ORDERED: NICOTINE 21MG/24HR 1 EA TRANSDERMAL As Ordered ONE (10:55)
[2020-04-24] MEDS ORDERED: NICOTINE 21MG/24HR 1 EA TRANSDERMAL ONE (10:55)
[2020-04-24] MEDS ORDERED: OLANZapine ORAL DISINTEGRATING TAB 5MG ONE (21:50)
[2020-04-24] MEDS ORDERED: PALIPERIDONE 3 MG ER TAB (INVEGA) ONE (21:50)
[2020-04-24] MEDS ORDERED: PALIPERIDONE 3 MG ER TAB (INVEGA) As Ordered ONE (21:57)
[2020-04-24] MEDS ORDERED: OLANZapine ORAL DISINTEGRATING TAB 5MG As Ordered ONE (21:57)
[2020-04-25] MEDS ORDERED: NICOTINE 21MG/24HR 1 EA TRANSDERMAL ONE (11:53)
[2020-04-25] MEDS ORDERED: NICOTINE 21MG/24HR 1 EA TRANSDERMAL As Ordered ONE (11:53)
[2020-04-25] MEDS ORDERED: PALIPERIDONE 3 MG ER TAB (INVEGA) ONE (20:24)
[2020-04-25] MEDS ORDERED: PALIPERIDONE 3 MG ER TAB (INVEGA) As Ordered ONE (20:24)
[2020-04-26] MEDS ORDERED: PALIPERIDONE 3 MG ER TAB (INVEGA) ONE (19:35)
[2020-04-26] MEDS ORDERED: PALIPERIDONE 3 MG ER TAB (INVEGA) As Ordered ONE (19:35)
[2020-04-27] MEDS ORDERED: NICOTINE 21MG/24HR 1 EA TRANSDERMAL ONE (11:49)
[2020-04-27] MEDS ORDERED: NICOTINE 21MG/24HR 1 EA TRANSDERMAL As Ordered ONE (11:49)
[2020-04-27] MEDS ORDERED: MAALOX 30 ML SUSP *UDC PO PRN (18:15)
[2020-04-27] MEDS ORDERED: ACETAMINOPHEN TAB 650MG DOSE (2X325MG) PO PRN (18:15)
[2020-04-27] MEDS ORDERED: META58.68 PO (18:24)
[2020-04-27] MEDS ORDERED: TRAZ-252 PO (18:24)
[2020-04-27] MEDS ORDERED: ABIL10TA9 PO (18:24)
[2020-04-27] MEDS ORDERED: ABIL1TAB11 PO (18:24)
[2020-04-27] MEDS ORDERED: INDO75CA PO (18:27)
[2020-04-27] MEDS ORDERED: traZODone 50 MG TAB PO PRN (18:30)
[2020-04-27] MEDS ORDERED: MOM 30ML SUSPENSION UDC PO PRN (18:30)
[2020-04-27] MEDS ORDERED: OLANZapine ORAL DISINTEGRATING TAB 5MG PO PRN ×2 (18:30→18:32)
[2020-04-27] MEDS ORDERED: PALIPERIDONE 3 MG ER TAB (INVEGA) PO SCH (21:00)
[2020-04-27] MEDS ORDERED: PALIPERIDONE 6 MG ER TAB (INVEGA) ONE (21:39)
[2020-04-27] MEDS: PALIPERIDONE 6 MG ER TAB (INVEGA) PO SCH (21:40)
[2020-04-28 06:27] VITALS: BP 135/64
--- NOTE | 2020-04-28 08:38 | MHIPNPDOC ---
[facility] Progress Note Progress Note DATE OF SERVICE: 04/27/20 Subjective HPI: Victor Hugo presents today for concerns regarding his medications. He denies feeling scared and staying up at night. He notes wanting to smoke. He used to smoke a pack a day and now he does not smoke at all. Objective Appearance: Well groomed. Well nourished. Appears to be stated age. Speech: Normal volume. Spontaneous and Fluid. Normal rate. Thought Form: Linear and goal directed. Thought Content: No evidence of suicidal ideation. No evidence of delusions. No thoughts of self harm. No evidence of aggressive or homicidal ideation. Perception: No perceptual abnormalities noted. Judgement: Improving. Insight: Improving. Assessment F20.89 Other schizophrenia Plan We will give first injection of 234 mg Invega Sustenna, and increase Invega to 6 mg nightly. Second injection will be given Sunday with a potential discharge Sunday or Sunday. Vital Signs Vital Signs Date Time Temp Pulse Resp B/P (MAP) Pulse Ox O2 Delivery O2 Flow Rate FiO2 04/28/20 06:27 96.8 63 12 135/64 (87) Room Air Current Medications Current Medications Medications (Trade) Dose Ordered Sig/Duglas Route PRN Reason Start Time Stop Time Status Last Admin Dose Admin Acetaminophen (Tylenol Tab) 650 mg Q6HP PRN PO HEADACHE/DISCOMFORT 04/27/20 18:15 Al Hydrox/Mg Hydrox/Simethicone (Mylanta) 30 ml Q4HP PRN PO HEARTBURN/INDIGESTION 04/27/20 18:15 Home Med (Med Rec Complete!) ASDIRECTED XX 04/27/20 18:30 04/27/20 18:28 DC Magnesium Hydroxide (Milk Of Magnesia) 30 ml DAILYPRN PRN PO CONSTIPATION 04/27/20 18:30 Nicotine (Nicoderm Cq 21mg) 1 patch DAILY TD 04/28/20 09:00 Olanzapine (ZyPREXA ZYDIS) 5 mg Q4HP PRN PO ANXIETY/AGITATION 04/27/20 18:30 04/27/20 18:32 DC Olanzapine (ZyPREXA ZYDIS) 10 mg Q4HP PRN PO ANXIETY/AGITATION 04/27/20 18:32 Paliperidone (Invega) 3 mg QHS PO 04/27/20 21:00 04/27/20 20:29 DC Paliperidone (Invega) 6 mg QHS PO 04/27/20 21:00 04/27/20 21:40 Trazodone HCl (Desyrel) 50 mg QHS PRN PO INSOMNIA 04/27/20 18:30 Allergies Coded Allergies: No Known Allergies (Unverified , 10/07/19) QUENTIN PARHAM DO Apr 28, 2020 08:38
--- NOTE | 2020-04-28 08:42 | MHIPNPDOC ---
[facility] Progress Note Progress Note DATE OF SERVICE: 04/28/20 Subjective HPI: Victor Hugo presents today for a follow-up during his hospitalization. He notes that he is doing well and denies any strange reactions or shakiness. However, he admits that he has been sleeping more often because he does not have anything to keep him busy. He discusses some concerns regarding symptoms after eating but is reassured that the medication will provide relief. Objective Appearance: Well groomed. Well nourished. Appears to be stated age. Speech: Normal volume. Spontaneous and Fluid. Normal rate. Thought Form: Linear and goal directed. Thought Content: No evidence of suicidal ideation. No evidence of delusions. No thoughts of self harm. No evidence of aggressive or homicidal ideation. Perception: No perceptual abnormalities noted. Judgement: Improving. Insight: Improving. Assessment Schizophrenia Plan Patient is to receive an injection and be discharged on Sunday morning Vital Signs Vital Signs Date Time Temp Pulse Resp B/P (MAP) Pulse Ox O2 Delivery O2 Flow Rate FiO2 04/28/20 06:27 96.8 63 12 135/64 (87) Room Air Current Medications Current Medications Medications (Trade) Dose Ordered Sig/Duglas Route PRN Reason Start Time Stop Time Status Last Admin Dose Admin Acetaminophen (Tylenol Tab) 650 mg Q6HP PRN PO HEADACHE/DISCOMFORT 04/27/20 18:15 Al Hydrox/Mg Hydrox/Simethicone (Mylanta) 30 ml Q4HP PRN PO HEARTBURN/INDIGESTION 04/27/20 18:15 Home Med (Med Rec Complete!) ASDIRECTED XX 04/27/20 18:30 04/27/20 18:28 DC Magnesium Hydroxide (Milk Of Magnesia) 30 ml DAILYPRN PRN PO CONSTIPATION 04/27/20 18:30 Nicotine (Nicoderm Cq 21mg) 1 patch DAILY TD 04/28/20 09:00 Olanzapine (ZyPREXA ZYDIS) 5 mg Q4HP PRN PO ANXIETY/AGITATION 04/27/20 18:30 04/27/20 18:32 DC Olanzapine (ZyPREXA ZYDIS) 10 mg Q4HP PRN PO ANXIETY/AGITATION 04/27/20 18:32 Paliperidone (Invega) 3 mg QHS PO 04/27/20 21:00 04/27/20 20:29 DC Paliperidone (Invega) 6 mg QHS PO 04/27/20 21:00 04/27/20 21:40 Trazodone HCl (Desyrel) 50 mg QHS PRN PO INSOMNIA 04/27/20 18:30 Allergies Coded Allergies: No Known Allergies (Unverified , 10/07/19) QUENTIN PARHAM DO Apr 28, 2020 08:42
[2020-04-28] MEDS: NICOTINE 21MG/24HR 1 EA TRANSDERMAL TD SCH (09:33)
[2020-04-28 16:50] VITALS: BP 127/66
[2020-04-28] MEDS: PALIPERIDONE 6 MG ER TAB (INVEGA) PO SCH (21:15)
[2020-04-29 06:55] VITALS: BP 133/74
[2020-04-29] MEDS: NICOTINE 21MG/24HR 1 EA TRANSDERMAL TD SCH (09:16)
--- NOTE | 2020-04-29 11:48 | MHIPNPDOC ---
[facility] Progress Note Progress Note DATE OF SERVICE: 04/29/20 Subjective HPI: Victor Hugo presents today for a follow-up. He notes he does not feel any weird feelings in his stomach anymore. Patient denies any side effects of the medication. He denies any suicidal or homicidal thoughts. Objective Appearance: Fair hygiene. Behavior: More linear. More logical. Less semantic preoccupation. Speech: Spontaneous and Fluid. Thought Content: No evidence of aggressive or homicidal ideation. No evidence of suicidal ideation. Perception: No internal stimuli noted. Judgement: Improving. Intact as evidenced by decision making in the recent past. Insight: Improving. Good insight into symptoms and treatment options. Assessment F20.9 Schizophrenia, unspecified Plan Patient will be discharged tomorrow morning. Patient will receive an injection before his discharge. Diagnosis is Schizophrenia Plan is to give 2nd injection tomorrow morning before discharge. Patient making progress. Attempted to contact Dr. Serrato however was unable to reach her. Will try tomorrow. Vital Signs Vital Signs Date Time Temp Pulse Resp B/P (MAP) Pulse Ox O2 Delivery O2 Flow Rate FiO2 04/29/20 06:55 98.0 76 16 133/74 (93) Room Air Current Medications Current Medications Medications (Trade) Dose Ordered Sig/Duglas Route PRN Reason Start Time Stop Time Status Last Admin Dose Admin Acetaminophen (Tylenol Tab) 650 mg Q6HP PRN PO HEADACHE/DISCOMFORT 04/27/20 18:15 Al Hydrox/Mg Hydrox/Simethicone (Mylanta) 30 ml Q4HP PRN PO HEARTBURN/INDIGESTION 04/27/20 18:15 Home Med (Med Rec Complete!) ASDIRECTED XX 04/27/20 18:30 04/27/20 18:28 DC Magnesium Hydroxide (Milk Of Magnesia) 30 ml DAILYPRN PRN PO CONSTIPATION 04/27/20 18:30 04/28/20 20:28 Nicotine (Nicoderm Cq 21mg) 1 patch DAILY TD 04/28/20 09:00 04/29/20 09:16 Olanzapine (ZyPREXA ZYDIS) 5 mg Q4HP PRN PO ANXIETY/AGITATION 04/27/20 18:30 04/27/20 18:32 DC Olanzapine (ZyPREXA ZYDIS) 10 mg Q4HP PRN PO ANXIETY/AGITATION 04/27/20 18:32 Paliperidone (Invega) 3 mg QHS PO 04/27/20 21:00 04/27/20 20:29 DC Paliperidone (Invega) 6 mg QHS PO 04/27/20 21:00 04/28/20 21:15 Trazodone HCl (Desyrel) 50 mg QHS PRN PO INSOMNIA 04/27/20 18:30 Allergies Coded Allergies: No Known Allergies (Unverified , 10/07/19) QUENTIN PARHAM DO Apr 29, 2020 11:48
[2020-04-29 18:00] VITALS: BP 143/84
[2020-04-29] MEDS: PALIPERIDONE 6 MG ER TAB (INVEGA) PO SCH (22:21)
[2020-04-30] MEDS ORDERED: PALIPERIDONE PALMITATE 156MG/1ML INJ(INVEGA)(FREE PSY INPT ONLY) IM ONE (06:00)
[2020-04-30 07:22] VITALS: BP 138/86
--- NOTE | 2020-04-30 08:03 | MHDSPDOC ---
[facility] Discharge Summary Discharge Summary DATE OF ADMISSION: Apr 21, 2020 at 20:40 DATE OF DISCHARGE:Apr 30, 2020 at 13:20 DISCHARGE DIAGNOSES: F20.9 Schizophrenia, unspecified CONSULTANTS INVOLVED:[ None (basic hospitalist screening)] REASON FOR ADMISSION & TREATMENT AND PROGRESS ON THE UNIT : Victor Hugo was admitted to the inpatient mental health unit where he had been presented prior. MEDICATIONS: Patient had done poorly on Abilify and Zyprexa, stopped those medications, and is currently taking Invega 6 mg. He was also placed on a long acting injectable during this admission. DISCHARGE ASSESSMENT[improved][stable][unchanged] Legal status considerations: The patient at the time of discharge did not meet criteria for involuntary admission/extension due to having a improved mental status exam, improved insight into the situation, They are engaged in the discharge process, as well as being friendly and amenable in behavioral control and havent been engaging in any observed concerning behavior or ideation recently. They decline voluntary extension/admission at this time and must be discharged in good ebenezer, as Im unable to make a case for holding the patient against their will. They may have historical risk factors of admissions and other interactions with psychiatry however, those are not modifiable from a clinical perspective. The patient will need to be discharged in good ebenezer. MENTAL STATUS EXAMINATION ON DISCHARGE: Behavior: Cooperative with good eye contact. Engaged. Pleasant. Affect: Mildly flat but improved. Cognition: Alert, Attentive, and Oriented to person, place, time. Thought Form: Linear and goal directed. Thought Content: No evidence of delusions. No evidence of suicidal ideation. No thoughts of self harm. No evidence of aggressive or homicidal ideation. Insight: Improved. Good insight into symptoms and treatment options. PLAN/FOLLOWUP ARRANGEMENTS: Follow up appointments made (PCP and MH in 5 days of D/C date) and safety plan completed. Safety Planning aspects completed prior to discharge [DOD: Weapons Profile 30 days] [RN reviewed crisis hotline information and other aspects to empower patient to access care in interim before next appointment.] Injectable medications used in order to reduce the chance of noncompliance The amount of time spent in the coordination of care for this patient was approximately 30 minutes. Vital Signs/I&Os Vital Signs Date Time Temp Pulse Resp B/P (MAP) Pulse Ox O2 Delivery O2 Flow Rate FiO2 04/30/20 07:22 97.3 95 12 138/86 (103) 97 Room Air Medications Scheduled Nicotine (Nicotine Patch) 21 Mg Patch.td24, 1 PATCH TD DAILY for tobacco for 30 Days, #30 Paliperidone Palmitate (Invega Sustenna) 156 Mg/1 Ml Syringe, 1 SYRINGE IM Q30D for thoughts\ for 30 Days, #1 next dose on 05/31/20 Allergies Coded Allergies: No Known Allergies (Unverified , 10/07/19) QUENTIN PARHAM DO Apr 30, 2020 08:03
[2020-04-30] MEDS ORDERED: INVE156I IM (08:09)
[2020-04-30] MEDS ORDERED: NICO21PAT TD (08:09)
[2020-04-30] MEDS: NICOTINE 21MG/24HR 1 EA TRANSDERMAL TD SCH (09:00)
--- NOTE | 2020-05-21 13:14 | ECGEPIP ---
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
[2020-06-08 09:06] LABS: INR 1.08; PARTIAL THROMBOPLASTIN TIME 28.8 SECONDS (24.2-38.5); PROTHROMBIN TIME 14.2 SECONDS (12.5-14.3)
[2020-06-09 20:39] LABS: BASO % 0.4 % (0.0-1.0); EOS # 0.1 10^3/uL (0.0-0.5); EOS % 1.1 % (0.0-3.0); HEMATOCRIT 47.2 % (42.0-52.0); LYMPH # 3.4 10^3/uL (1.5-5.0); LYMPH % 47.9 % (24.0-44.0); MEAN CORPUSCULAR HEMOGLOBIN 30.8 pg (27.0-33.0); MEAN CORPUSCULAR HGB CONC 33.9 g/dl (32.0-36.5); MEAN CORPUSCULAR VOLUME 90.9 fl (80.0-96.0); MONO # 0.5 10^3/uL (0.0-0.8); MONO % 6.4 % (0.0-5.0); NEUTROPHILS # 3.1 10^3/uL (1.5-8.5); NEUTROPHILS % 44.1 % (36.0-66.0); PLATELET COUNT, AUTOMATED 286 10^3/uL (150-450); RED BLOOD COUNT 5.19 10^6/uL (4.30-6.10)
--- NOTE | 2020-06-19 07:15 | MHIPN ---
DATE: 04/24/2020 Victor Hugo was admitted on 04/21/2020 because he reported things moving in my body. He also reported hearing voices. INTERVAL HISTORY: Today, 04/24/2020, the patient is reporting seeing the beings and he says that those are demonic spirits that are going to kill him. He says that he wants to talk to a ophthalmic dispenser because that is the only way that he can be cured. He does not believe that medications are going to help him a lot and he would like to go to [facility], specifically to [facility] to be with his family and meet with a ophthalmic dispenser because they will be able to understand what he is going through. He says he has not seen his family in four years and he misses them a lot. SUBJECTIVE: The patient reports feeling anxious because he feels the beings are going to kill him, he feels that they can split his heat or cut his neck. He reports seeing them and hearing their voices but he will not disclose to me as to what the voices are telling him. He says he slept well last night because he took a pill, and he thinks it is a sleeping pill, but in fact, according to nursing staff, is an Invega 3 mg tablet. OBJECTIVE (MENTAL STATUS EXAMINATION): The patient was alert and oriented times three, dressed in hospital clothes, with poor eye contact, he was clean. His speech was spontaneous and fluent, was a little bit tremulous because he is very anxious. He was fidgety in the chair that he was sitting in. His thought process is not logical, his thought content is positive for auditory, visual, and tactile hallucinations, positive for anxious and depressed thoughts, positive for oriental orthodox and magical preoccupation. His mood and affect are very anxious, he is convinced that the beings, as he calls them, are going to kill him. His insight and judgment are poor at this time, patient is psychotic. DIAGNOSIS: Unspecified psychotic disorder. ASSESSMENTAND PLAN: Patient will continue on current medications at this time. He just has started taking Invega and he was possibly, I do not know, taking Zyprexa Zydis before he started taking Invega, but the Zyprexa Zydis was as needed, is not scheduled like Invega. We will continue with the same medication and patient needs support, he needs to talk more frequently to staff so that he will be able to relax about his auditory and visual hallucinations, because if he starts understanding that they are not real he will feel calmer. Will continue to monitor and will adjust medications accordingly. CYNTHIA
--- NOTE | 2020-06-19 07:16 | MHIPN ---
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 The patient reported that he felt as if he had bugs crawling on his skin or as if he was being touched on his legs and arms, but he also reported auditory and visual hallucinations of beings that are here to kill me. He says that those beings were demonic spirits that wanted to harm him. SUBJECTIVE: The patient reports that he slept better last night, his appetite is still decreased, he says that he feels calmer today, less anxious because the spirits are going away, they are afraid, according to what he says, he says that the spirits are afraid that he is going to and so they are going away from him. He says that when he talks to God and when he prays to God he feels that there is a hole that opens up in his head and when he feels that the energy of God penetrates his skull he feels that the bad spirits start to go away. Overall, he reports a decrease in the auditory, visual, and tactile hallucinations and he also reports feeling less anxious today. He denies suicidal ideation, homicidal ideation today. OBJECTIVE (MENTAL STATUS EXAMINATION): The patient was seen wearing his hospital clothes, he was neat and cooperative. Eye contact continues to be poor. His speech was more fluent, more spontaneous and today I could hear the tremulous voice that I heard yesterday. Tone, volume, rate, and rhythm were normal. Thought process is linear although not necessarily coherent and the thought content is still positive for auditory and visual hallucinations but these have decreased compared to how they were yesterday. He still describes tactile hallucinations but less frequent and less intense compared to how they were before. He denies suicidal and homicidal ideation. His mood and affect are still anxious and his insight and judgment are still limited. DIAGNOSIS: Most likely is schizophrenia because the patient reports that he has had these symptoms for about 8 months already. ASSESSMENT AND PLAN: The patient is having a good response to medications, his psychosis is beginning to subside, but he still needs support and he will need to continue therapy and psychopharmacological treatment once he is discharged from the inpatient mental health unit and returns to [place]. The patient still would like to see a cdl company driver, which I do not think is a bad idea, if he believes in God and his ebenezer is strong enough, I think it at least could make him feel better and supported. I have told him that it is important for him to continue taking his medications and he has been taking them, so I think that if he takes his medications he can also take care of his spiritual side and that will be very helpful for him. I have encouraged him to continue attending groups, to seek help with staff when he needs it, and will continue to adjust medications as needed. Will followup. CYNTHIA
--- NOTE | 2020-06-19 07:17 | MHIPN ---
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 SUBJECTIVE: Today, Mr. Maxwell reports that he is feeling better, he says that the demons and the beings are gone, they have not been bothering him. He says that his mind is more clear, he only hears a couple of noises here and there but not exactly voices. He denies having suicidal thoughts at this time, denies homicidal thoughts, and denies feeling paranoid at this time. Denies tactile, auditory, or visual hallucinations. OBJECTIVE (MENTAL STATUS EXAMINATION): Mr. Maxwell is alert and oriented times three, he is dressed in hospital clothes, he is cooperative and polite. He has poor eye contact. His speech is sparse, it is not spontaneous and not fluent, he needs to be prompted, it is normal in rate, rhythm, tone, and volume. Thought process is linear although not necessarily coherent because he still believes that the demons were causing his problems, he is not insightful about his illness and he is still in denial. Thought content is negative for suicidal thoughts, homicidal thoughts, or thought delusions at this time. He denies tactile, auditory, or visual hallucinations and he is not responding to internal stimuli. His mood is sad and his affect is constricted. His insight and judgment are poor, he does not accept that he has a mental illness and he is still in denial. DIAGNOSIS: Psychotic disorder, most likely schizophrenia since it has lasted approximately 8 months according to the patient. ASSESSMENT: Patient is showing improvement, he is responding to medications, but he is still not insightful about his illness and his affect is constricted which could be congruent with the negative symptoms of schizophrenia, the flattening of his affect. His eye contact is poor and he still believes that the illness is secondary to demons who are trying to kill him. This law writer has explained to him that this is an illness and there is no shame on having a mental illness, and that it is important for him to comply with medications and treatment. The patient is very polite and he will say yes maam, yes garrett, yes maguerda, but deeply I know that he still believes that it is a spiritual manifestation of some bad spirits that want to harm him. It is important for him to have some spiritual support, like he wants to speak with a search marketing specialist, because he is convinced that these are demons that are wanting to harm him, and I do believe that for anybody, it is important to have that type of support because it brings hope and it can help a lot of people, but it is also important that he acknowledges the fact that this is an illness and that he will need to be treated for it probably for a long period of time. He will probably accept his illness if he goes to therapy, probably weekly or every 2 weeks, at [facility] where he will need to receive a lot of support. CYNTHIA
[2020-07-14 04:46] LABS: ACETAMINOPHEN LEVEL < 2.0 UG/ML (10.0-30.0); ALT/SGPT 53 U/L (12-78); AMPHETAMINES LEVEL URINE NEGATIVE (NEGATIVE); BARBITURATES URINE NEGATIVE (NEGATIVE); BENZODIAZEPINES URINE NEGATIVE (NEGATIVE); BILIRUBIN,DIRECT 0.1 MG/DL (0.0-0.2); BILIRUBIN,TOTAL 0.4 MG/DL (0.2-1.0); BLOOD UREA NITROGEN 18 MG/DL (7-18); CALCIUM LEVEL 8.9 MG/DL (8.5-10.1); CANNABINOIDS URINE NEGATIVE (NEGATIVE); CARBON DIOXIDE LEVEL 29 MEQ/L (21-32); CHLORIDE LEVEL 106 MEQ/L (98-107); CK-MB VALUE MASS < 1.0 NG/ML (<3.6); COCAINE METABOLITE URINE NEGATIVE (NEGATIVE); CPK CREATINE PHOSPHOKINASE 264 U/L (39-308); ETHYL ALCOHOL (ETHANOL) < 0.003 % (0.000-0.010); GLOMERULAR FILTRATION RATE > 60.0 (>60); GLUCOSE, FASTING 96 MG/DL (70-100); MB/CK RELATIVE INDEX 0.38 (< OR =4); METHADONE URINE NEGATIVE (NEGATIVE); OPIATES URINE NEGATIVE (NEGATIVE); PHENCYCLIDINE URINE NEGATIVE (NEGATIVE); POTASSIUM SERUM 3.8 MEQ/L (3.5-5.1); SALICYLATE LEVEL 4.2 MG/DL (5.0-30.0); SODIUM LEVEL 142 MEQ/L (136-145); TOTAL PROTEIN 7.8 GM/DL (6.4-8.2)
== END 2020-04-30 13:20 | disposition home or self-care (01) | DRG 885 ==
LOC: M ED 16:20 → M PSY 20:40
PROVIDERS: ADMIT Psychiatry & Neurology Psychiatry; ATTEND Psychiatry & Neurology Addiction Medicine
DX: F20.9 Schizophrenia, unspecified (principal)

== ENCOUNTER 2020-06-29 09:34 | Inpatient (IN) | payer OTHER ==
[~2020-06-29] VITALS: Ht 185.4 cm; Wt 110.7 kg
[~2020-06-29 09:34] MED LIST changes: +ABIL10TA9 PO; +ABIL1TAB11 PO; +INDO75CA PO; +INVE156I IM; +META58.68 PO; +NICO21PAT TD; +TRAZ-252 PO
[2020-06-29 10:25] LABS: HEMATOCRIT 45.2 % (42.0-52.0); HEMOGLOBIN 15.5 g/dl (13.5-17.5); MEAN CORPUSCULAR HEMOGLOBIN 30.6 pg (27.0-33.0); MEAN CORPUSCULAR HGB CONC 34.3 g/dl (32.0-36.5); MEAN CORPUSCULAR VOLUME 89.3 fl (80.0-96.0); PLATELET COUNT, AUTOMATED 270 10^3/uL (150-450); RED BLOOD COUNT 5.06 10^6/uL (4.30-6.10)
[2020-06-29 10:54] LABS: ACETAMINOPHEN LEVEL < 2.0 UG/ML (10.0-30.0); ALBUMIN 3.7 GM/DL (3.2-5.2); ALT/SGPT 50 U/L (12-78); BILIRUBIN,DIRECT 0.1 MG/DL (0.0-0.2); BILIRUBIN,TOTAL 0.5 MG/DL (0.2-1.0); BLOOD UREA NITROGEN 13 MG/DL (7-18); CALCIUM LEVEL 8.9 MG/DL (8.5-10.1); CARBON DIOXIDE LEVEL 31 MEQ/L (21-32); CHLORIDE LEVEL 105 MEQ/L (98-107); CREATININE FOR GFR 1.15 MG/DL (0.70-1.30); ETHYL ALCOHOL (ETHANOL) < 0.003 % (0.000-0.010); GLOMERULAR FILTRATION RATE > 60.0 (>60); GLUCOSE, FASTING 106 MG/DL (70-100); POTASSIUM SERUM 3.8 MEQ/L (3.5-5.1); SALICYLATE LEVEL 3.2 MG/DL (5.0-30.0); SODIUM LEVEL 141 MEQ/L (136-145); TOTAL PROTEIN 7.7 GM/DL (6.4-8.2)
[2020-06-29 13:37] LABS: AMPHETAMINES LEVEL URINE NEGATIVE (NEGATIVE); BARBITURATES URINE NEGATIVE (NEGATIVE); BENZODIAZEPINES URINE NEGATIVE (NEGATIVE); CANNABINOIDS URINE NEGATIVE (NEGATIVE); COCAINE METABOLITE URINE NEGATIVE (NEGATIVE); METHADONE URINE NEGATIVE (NEGATIVE); OPIATES URINE NEGATIVE (NEGATIVE); PHENCYCLIDINE URINE NEGATIVE (NEGATIVE)
[2020-06-29] MEDS ORDERED: INVE156I IM (14:06)
[2020-06-29] MEDS ORDERED: MAALOX 30 ML SUSP *UDC PO PRN (20:30)
[2020-06-29] MEDS ORDERED: MOM 30ML SUSPENSION UDC PO PRN (20:30)
[2020-06-29] MEDS ORDERED: ACETAMINOPHEN TAB 650MG DOSE (2X325MG) PO PRN (20:30)
[2020-06-29 23:50] VITALS: BP 126/57
[2020-06-30 06:37] VITALS: BP 144/88
--- NOTE | 2020-06-30 17:03 | HPEPDOC ---
General Date of Admission Jun 29, 2020 at 20:25 Date of Service: Jun 30, 2020 Chief Complaint The patient is a 25-year-old male admitted with a reason for visit of Unspecified Psychosis. 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 I am seeing the patient for medical history and physical. He denied any medical complaints today. Smiling but does not talk much nods or shakes his head to questions or says yes or no but does not expound on his answers. He did say he feels like he needs to smoke . I offered him nicotine patch which he says does not help so did not want it. Home Medications Scheduled Paliperidone Palmitate (Invega Sustenna) 156 Mg/1 Ml Syringe, 156 MG IM QMONTH, (Reported) PATIENT WAS DUE TO RECEIVE TODAY 06/29/20 Allergies Coded Allergies: No Known Allergies (Unverified , 10/07/19) Past Medical History Medical History Schizophrenia Family History Significant Family History: No pertinent family hx discussed with patient Social History * Smoker: current smoker Alcohol: occationally Drugs: denies A-FIB/CHADSVASC A-FIB History Current/History of A-Fib/PAF?: No Review of Systems Constitutional: Denies: Chills, Fever, Night Sweats Eyes: Denies: Pain, Vision change ENT: Denies: Head Aches, Ear Pain, Dysphagia Skin: Denies: Rash, Lesions, Breakdown Pulmonary: Denies: Dyspnea, Cough Cardiovascular: Denies: Chest Pain, Palpitations, Orthopnea, Paroxysmal Noc. Dyspnea, Lt Headedness Gastrointestinal: Denies: Nausea, Vomiting, Abdominal Pain, Diarrhea Genitourinary: Denies: Dysuria, Frequency, Incontinence, Retention Musculoskeletal: Denies: Neck Pain, Back Pain, Joint Pain, Muscle Pain, Spasms Physical Examination General Exam: Positive: Alert, Cooperative, No Acute Distress Eye Exam: Positive: PERRLA, Conjunctiva & lids normal, EOMI; Negative: Sclera icteric ENT Exam: Positive: Atraumatic, Mucous membr. moist/pink, Pharynx Normal Neck Exam: Positive: Supple; Negative: JVD, thyromegaly Chest Exam: Positive: Clear to auscultation, Normal air movement Heart Exam: Positive: Rate Normal, Regular Rhythm, Normal S1, Normal S2; Negative: Murmurs, Rubs Abdomen Exam: Positive: Normal bowel sounds, Soft; Negative: Tenderness, Hepatospenomegaly Vital Signs Vital Signs Date Time Temp Pulse Resp B/P (MAP) Pulse Ox O2 Delivery O2 Flow Rate FiO2 06/30/20 06:37 98.4 86 18 144/88 (106) 06/29/20 23:50 98 Room Air Assessment/Plan Unspecifed Psychosis as per psychiatry Smoking cessation discussed nicotine patch offered he refused No active medical issues. Will sign off. Plan / VTE VTE Prophylaxis Ordered?: No SHILPI MORGAN MD Jun 30, 2020 17:02
[2020-06-30 17:17] VITALS: BP 150/88
[2020-06-30] MEDS ORDERED: LORazepam 1 MG TAB PO PRN (21:00)
[2020-06-30] MEDS ORDERED: OLANZapine ORAL DISINTEGRATING TAB 5MG PO PRN (21:00)
[2020-07-01 07:29] VITALS: BP 131/68
--- NOTE | 2020-07-01 10:29 | MHHPEPDOC ---
[facility] History & Physical History and Physical Date of service: 07/01/2020 Subjective HPI: The patient is seen today, he reports that he still feels of people were out to get him. He had been brought in due to psychosis, he speaks little other than complaining about some waking from his antipsychotic. The H&P note title is incorrect as the primary H&P had not appear at the time of the production of this note Objective General: poor Speech: sparse Thought processes: circumstantial Thought content: psychotic delusions Abstract reasoning, and computation: impaired Description of associations: imparied Description of abnormal or psychotic thoughts:Unclear, appears to have psychotic processes going on. Judgment: poor Insight: poor Orientation: Alert and orientated 3 Recent and remote memory: Intact Attention span and concentration: impaired secondary to thought process Fund of knowledge: unable to determine Mood: "fine" Affect: flat, little reactivity Assessment schizophrenia Plan Will give new dose of paliperidone depot 156 mg as it is due and observe Vital Signs Vital Signs Date Time Temp Pulse Resp B/P (MAP) Pulse Ox O2 Delivery O2 Flow Rate FiO2 07/01/20 07:29 97.9 86 14 131/68 (89) Room Air 06/29/20 23:50 98 Medications Scheduled Paliperidone Palmitate (Invega Sustenna) 156 Mg/1 Ml Syringe, 156 MG IM QMONTH, (Reported) PATIENT WAS DUE TO RECEIVE TODAY 06/29/20 Allergies Coded Allergies: No Known Allergies (Unverified , 10/07/19) QUENTIN PARHAM DO Jul 01, 2020 10:29
[2020-07-01] MEDS ORDERED: PALIPERIDONE PALMITATE 156MG/1ML INJ(INVEGA)(FREE PSY INPT ONLY) IM ONE (13:00)
[2020-07-01 19:14] VITALS: BP 141/83
[2020-07-02 06:24] VITALS: BP 132/62
--- NOTE | 2020-07-02 07:11 | MHHPE ---
[facility] DOWNTIME REPORT NAME: Victor Hugo Banerjee [facility] WT ID#: [id number] : / / JOB: [id number] CATHI: 06/30/2020 DOCTOR: Marc Peraza M.D. HISTORY AND PHYSICAL PSYCHIATRIC DATE OF ADMISSION: 07/01/2020 CHIEF COMPLAINT: Says he is bothered by spirits. SUBJECTIVE: He is 25 years old. He is . Says his is in [place]. He is in the . He has been admitted on two occasions here in the past, some time in January, then more recently in April this year. Was diagnosed with schizophrenia versus unspecified psychotic disorder. The previous summaries are reviewed. He had come in, as he had been increasingly disturbed by what he termed as spirits. He was treated with oral medications, antipsychotics, including Zyprexa initially on first admission, then later on, more recent admission, Invega Sustenna. He is apparently due for his Invega Sustenna shot the last day or so. Seen at [facility]. He called someone over there. He spoke about his distress, being disturbed by the spirits that he describes. He says they poke him with little knives that they have, poke him in the sides, in his legs. It should be noted he is quick to point out that he does not think this is a medical problem but rather a spiritual one, as these are spirits which have been disturbing him for the last several months. They have increasingly disturbed him to the point where he has a hard time with sleep. Appetite is diminished. Says they "mess with my head," and that he feels that seeing a job developer for deaf adults who understands these matter would help him. Says was upset and puzzled as to why he was being brought to the hospital. He denied that he wanted to kill himself. Feels the spirits will kill him. Says he had spoke with his mother and sister in [facility]. He says he is from [facility] and that they were puzzled as well as to why he was being medically treated. They have suggested that he return to [facility] and be treated there by a suitable job developer for deaf adults. Patient requests that the [place] is informed, so he can return to [facility]. Says he is confident if he returns there and sees his spiritual healer, a job developer for deaf adults, whom he is aware of, he would improve. 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 They have declined his request. Says they have, in fact, taken his passport. He was hoping to go to [facility] at some point in August. Says if he returned to [facility], he would come back to the [place], go the [place], and start work. Is confident he would feel better. He also spoke of these spirits in the form of kids, and then there are others which have adult forms. They are ones with "keys" and suggests that they try to poke him on his body and that they succeed. Says he had spoken with a job developer for deaf adults in the . Last name is Michael, per the patient, whom he says is from [facility] and understands these matters. Also says these are spirits that had tormented his father to , per the patient, in the early to mid 90s. Says has been here in this country for the last 3 years or so and was doing well until earlier this year. Says had built his mother a fine house in his home town. Says the neighbors are jealous and that they cursed him by sending the spirits to him all the way from there. He suggests these are similar spirits to the ones that his father had suffered from. Says can hear the adult spirits talk. They talk amongst themselves about him. They also make derogatory statements toward him. Says most of his day, when not doing well, is taken up by these matters. He notices that when he is intoxicated, he feels that the "spirits leave me alone." He does not think that the Invega has helped. He suggests that he has put on weight since then. Suggests has had no major mental health difficulties over the years until lately. Says he feels he should have been spiritually prepared before leaving [facility]. Also suggests that these particular spirits are well known in his area and in neighboring areas as well. PAST PSYCHIATRIC HISTORY: Other than indicated above, has had a couple of hospitalizations here. FAMILY PSYCHIATRIC HISTORY: Denies any, though suggests that his father was quite disturbed by similar "spirits." Unclear what that was about. SOCIAL HISTORY: He is . is in [place]. He says she understands these matters and that he discusses them with her. He says he is from the same area in [facility] as him. He says he had done various work in the [place] before joining the over a year ago. Says was in [place] some time last August. Unclear if he has been there since. MENTAL STATUS EXAMINATION: He is neat. He is cooperative. Is well nourished. Mildly fidgety and quite demonstrative trying to explain the "spirits." No psychomotor retardation. He is coherent. Affect fairly broad. He is alert and oriented. No fluctuation of consciousness. Intellect is average. Judgment and insight are quite possibly compromised. ASSESSMENT: 1. Unspecified schizophrenia spectrum and other psychotic disorder. 2. Being away from family. The differential diagnosis may include primary psychosis, such as schizophrenia. The patient has had these symptoms and disturbances "by spirits" for the last several months at least, and these phenomena seem to be quite familiar to him within his culture. It is quite possible that this may be a culture-bound phenomenon. It is quite similar to psychosis. He suggests his father had similar experiences and may have from them. This may also indicate that his father had what could be termed primary psychosis. This would need to be explored with care, and collateral information, for example, from his , would tend to help. It would also be useful to find out, if possible, if such behaviors that has exhibited and disturbances are unusual even within his culture in [place]. Alcohol diminishes what he terms as "the spirits," as he is possibly less anxious and calmer overall. It would be beneficial potentially to explore this in that context and treat symptomatically, for example, with antianxiety medicines rather than atypical antipsychotics on a regular basis. In view of this, I would probably avoid using any injectable depot long-acting antipsychotic, such as Invega Sustenna. The use of a lower dose of antipsychotic by mouth in addition to anti-anxiety medications would potentially be helpful in reducing his distress. This may lead to further symptomatic improvement. PLAN: He is admitted to the inpatient psychiatry unit, placed on relevant precautions. I would suggest attempting to obtain collateral information, as discussed above, and put his experiences, symptoms, in cultural context. However,, the possibility of primary psychosis, such as schizophrenia, needs to be considered after taking cultural aspects into consideration, as discussed above. 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 This will be further pursued once he is discharged from here. He is to be encouraged to participate in activities in the unit. He is to be discharged with followup once he is stable. Patient's difficulties present the interface between culture, spirituality, medicine, and psychiatry, and addressed as such with the emphasis on relief of this distress and diminishing of symptoms. Should the difficulties, symptoms, be considered out of the ordinary, even within his culture, then the possibility of primary psychosis is probably favored. I anticipate a 5-7 day stay. Further recommendations will be made depending in the clinical picture. The assessment took 50 minutes. /aly MARIE
--- NOTE | 2020-07-02 12:31 | MHIPNPDOC ---
[facility] Progress Note Progress Note DATE OF SERVICE: 07/02/20 Subjective HPI: The patient is met with, he still isolative and somewhat strange, he reports he still wants to go but at this time, it appears that he still has some unusual thinking. Objective General: [Well dressed with good hygiene] Speech: sparse Thought processes: circumstantial Thought content: [Future orientated] Abstract reasoning, and computation: [Intact] Description of associations: improved Description of abnormal or psychotic thoughts:[Denies any suicidal or homicidal ideation. Denies any auditory or visual hallucinations. Does not appear to be responding to internal stimuli. Does not appear to be endorsing any bizarre or paranoid ideation.] Judgment: poor to fair Insight: poor to fair Orientation: [Alert and orientated 3] Recent and remote memory: [Intact] Attention span and concentration: [Intact] Fund of knowledge: [Adequate] Mood: ["okay"] Affect: flat with little reactivity Assessment schizophrenia Plan Observed over the weekend determine if paliperidone is helpful Vital Signs Vital Signs Date Time Temp Pulse Resp B/P (MAP) Pulse Ox O2 Delivery O2 Flow Rate FiO2 07/02/20 06:24 98.6 81 12 132/62 (85) Room Air 06/29/20 23:50 98 Current Medications Current Medications Medications (Trade) Dose Ordered Sig/Duglas Route PRN Reason Start Time Stop Time Status Last Admin Dose Admin Acetaminophen (Tylenol Tab) 650 mg Q6HP PRN PO HEADACHE or DISCOMFORT 06/29/20 20:30 Al Hydrox/Mg Hydrox/Simethicone (Mylanta) 30 ml Q4HP PRN PO HEARTBURN/INDIGESTION 06/29/20 20:30 Home Med (Med Rec Complete!) ASDIRECTED XX 06/29/20 14:15 06/29/20 14:17 DC Lorazepam (Ativan) 1 mg Q6HP PRN PO ANXIETY 06/30/20 21:00 Magnesium Hydroxide (Milk Of Magnesia) 30 ml DAILYPRN PRN PO CONSTIPATION 06/29/20 20:30 Olanzapine (ZyPREXA ZYDIS) 5 mg Q4HP PRN PO ANXIETY/AGITATION 06/30/20 21:00 Trazodone HCl (Desyrel) 50 mg QHSP PRN PO INSOMNIA 06/29/20 20:30 Allergies Coded Allergies: No Known Allergies (Unverified , 10/07/19) QUENTIN PARHAM DO Jul 02, 2020 12:31
[2020-07-02] MEDS ORDERED: NICOTINE 7 MG/24 HR TRANSDERMAL TD PRN (14:45)
[2020-07-02 18:09] VITALS: BP 122/60
[2020-07-02] MEDS: traZODone 50 MG TAB PO PRN (20:22)
[2020-07-03 06:45] VITALS: BP 119/58
[2020-07-03 17:37] VITALS: BP 161/74
[2020-07-03] MEDS: traZODone 50 MG TAB PO PRN (20:49)
[2020-07-04 06:34] VITALS: BP 106/53
[2020-07-04 18:27] VITALS: BP 151/84
[2020-07-04] MEDS: traZODone 50 MG TAB PO PRN (21:06)
[2020-07-04] MEDS ORDERED: ONDANSETRON 4 MG ORAL DISINTEGRATING TAB PO PRN (23:30)
[2020-07-04 23:37] VITALS: BP 141/86
--- NOTE | 2020-07-04 23:42 | HPEPDOC ---
[facility] Medical History & Physical Date of Admission Jul 04, 2020 Date of Service: Jul 04, 2020 Attending Physician: QUENTIN PARHAM DO History and Physical TIME OF SERVICE: 1145 PM CHIEF COMPLAINT: Abdominal pain HISTORY OF PRESENT ILLNESS: This 25-year-old gentleman is admitted to [facility] for unspecified psychosis; seeping. He is complaining of of 10 in severity epigastric, bilateral rib pain and back pain that is located between his shoulder blades. He has also had one episode of non bloody vomitus and chills. He denies having fever, diarrhea or eating any new foods or food that tasted odd and attributes to spiritual forces and witch craft. REVIEW OF SYSTEMS: negative except as listed in HPI PAST MEDICAL/ SURGICAL HISTORY: Schizophrenia SOCIAL HISTORY: Originally from [place] [employer] FAMILY HISTORY: n/a ALLERGIES: Please see below. HOME MEDICATIONS: Please see below. PHYSICAL EXAMINATION: Temperature 97.3 / HR 75 / O2 100% / BP 141/86 / RR 18 GEN: well-nourished / well developed/ anxious CVS: RRR/NMRG LUNGS: able to speak full sentences without stopping to take a breath / no coughing / lungs are clear to auscultation bilaterally on room air ABDOMEN: Contour (obese ) / soft & not tender with palpation MSK/EXTREMITIES: NCAT / range of motion intact in all 4 extremities / gait normal / back pain reproducable with palpation of the mid upper back NEURO: CN 2-12 are grossly intact / speech is not dysarthric PSYCH: alert and oriented to person place and time/ able to understand and follow all commands LABORATORY DATA: See below. ASSESSMENT: is a 25 yr old w a hx of schizophrenia who is admitted to [facility] for unspecified psychotic episode; we were aske to re-evaluate him bc of c/o epigastric pain, back pain pain and non-blood emesis of unclear cause. PLAN: 1. Epigastric and abdominal pain Plan: f/u CBC, CMP, lipase and trop / acetaminophen Zofran and tums 2. Uncontrolled HTN Plan: start amlodipine 2.5mg PO daily / smoking cessation education 3. Obesity with BMI of 32.2 Plan: f/u A1C Thank you for reconsulting us, I will ask one of my colleagues to follow up on 's symptoms in the morning. Vital Signs Vital Signs Date Time Temp Pulse Resp B/P (MAP) Pulse Ox O2 Delivery O2 Flow Rate FiO2 07/04/20 18:27 98.2 60 18 151/84 (106) 99 Room Air Home Medications Scheduled Paliperidone Palmitate (Invega Sustenna) 156 Mg/1 Ml Syringe, 156 MG IM QMONTH PATIENT WAS DUE TO RECEIVE TODAY 06/29/20 Allergies Coded Allergies: No Known Allergies (Unverified , 10/07/19) A-FIB/CHADSVASC A-FIB History Current/History of A-Fib/PAF?: No Current PO Anticoag Therapy: No KAMILLA MAZA MD Jul 04, 2020 23:42
[2020-07-04] MEDS ORDERED: CALCIUM CARBONATE 500 MG CHEW U/D PO PRN (23:45)
[2020-07-04] MEDS ORDERED: GI COCKTAIL 50ML BTL(HYOSCYAMINE/MAALOX/LIDOCAINE VISCOUS)(1:3:1) PO ONE (23:45)
[2020-07-04] MEDS: RAMELTEON 8 MG TAB (ROZEREM) PO PRN (23:55)
[2020-07-05 00:12] LABS: BASO % 0.4 % (0.0-1.0); EOS # 0.2 10^3/uL (0.0-0.5); EOS % 2.4 % (0.0-3.0); HEMATOCRIT 44.1 % (42.0-52.0); HEMOGLOBIN 15.3 g/dl (13.5-17.5); LYMPH # 3.2 10^3/uL (1.5-5.0); LYMPH % 47.4 % (24.0-44.0); MEAN CORPUSCULAR HEMOGLOBIN 30.9 pg (27.0-33.0); MEAN CORPUSCULAR HGB CONC 34.7 g/dl (32.0-36.5); MEAN CORPUSCULAR VOLUME 89.1 fl (80.0-96.0); MONO # 0.6 10^3/uL (0.0-0.8); MONO % 8.2 % (0.0-5.0); NEUTROPHILS # 2.8 10^3/uL (1.5-8.5); NEUTROPHILS % 41.2 % (36.0-66.0); PLATELET COUNT, AUTOMATED 242 10^3/uL (150-450); RED BLOOD COUNT 4.95 10^6/uL (4.30-6.10); WHITE BLOOD COUNT 6.7 10^3/uL (4.0-10.0)
[2020-07-05 00:25] LABS: HEMOGLOBIN A1c 5.9 %
[2020-07-05 00:33] LABS: ALBUMIN 3.6 GM/DL (3.2-5.2); ALT/SGPT 59 U/L (12-78); BILIRUBIN,TOTAL 0.3 MG/DL (0.2-1.0); BLOOD UREA NITROGEN 13 MG/DL (7-18); CARBON DIOXIDE LEVEL 29 MEQ/L (21-32); CHLORIDE LEVEL 105 MEQ/L (98-107); GLOMERULAR FILTRATION RATE > 60.0 (>60); GLUCOSE, FASTING 127 MG/DL (70-100); LIPASE 171 U/L (73-393); POTASSIUM SERUM 3.8 MEQ/L (3.5-5.1); SODIUM LEVEL 138 MEQ/L (136-145); TOTAL PROTEIN 7.6 GM/DL (6.4-8.2)
[2020-07-05 01:22] LABS: TROPONIN I < 0.02 NG/ML (< 0.10)
[2020-07-05 06:53] VITALS: BP 142/72
--- NOTE | 2020-07-05 09:46 | MHIPNPDOC ---
[facility] Progress Note Progress Note DATE OF SERVICE: 07/05/20 Subjective HPI: Patient seen today for follow up, he remains fairly psychotic and preseverative on various spirits that are "after my sperm", the majority of the conversation is him talking about the various physical things these spirits do to him, he appears to be quiet psychotic and delusional. Objective Appearance: Hygiene poor to fair. Affect: Constricted. Mood: flat, no reactivity Thought Content:delusional, impaired associations Judgement: Poor to fair. Insight: Poor to fair. 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 Vital Signs Vital Signs Date Time Temp Pulse Resp B/P (MAP) Pulse Ox O2 Delivery O2 Flow Rate FiO2 07/05/20 09:29 88 136/78 07/05/20 06:53 98.4 16 07/04/20 23:37 100 Room Air Laboratory Data 24H Labs Laboratory Tests 2 07/04/20 23:59: Immature Granulocyte % (Auto) 0.4, Neutrophils (%) (Auto) 41.2, Lymphocytes (%) (Auto) 47.4H, Monocytes (%) (Auto) 8.2H, Eosinophils (%) (Auto) 2.4, Basophils (%) (Auto) 0.4, Neutrophils # (Auto) 2.8, Lymphocytes # (Auto) 3.2, Monocytes # (Auto) 0.6, Eosinophils # (Auto) 0.2, Basophils # (Auto) 0.0, Nucleated Red Blood Cells % (auto) 0.0, Anion Gap 4L, Glomerular Filtration Rate > 60.0, Estimated Mean Plasma Glucose 123H, Hemoglobin A1c 5.9, Calcium Level 9.0, Total Bilirubin 0.3, Aspartate Amino Transf (AST/SGOT) 24, Alanine Aminotransferase (ALT/SGPT) 59, Alkaline Phosphatase 65, Troponin I < 0.02, Total Protein 7.6, Albumin 3.6, Albumin/Globulin Ratio 0.9, Lipase 171 CBC/BMP Laboratory Tests 07/04/20 23:59 Current Medications Current Medications Medications (Trade) Dose Ordered Sig/Duglas Route PRN Reason Start Time Stop Time Status Last Admin Dose Admin Acetaminophen (Tylenol Tab) 650 mg Q6HP PRN PO HEADACHE or DISCOMFORT 06/29/20 20:30 07/04/20 21:05 Al Hydrox/Mg Hydrox/Simethicone (Mylanta) 30 ml Q4HP PRN PO HEARTBURN/INDIGESTION 06/29/20 20:30 Amlodipine Besylate (Norvasc) 2.5 mg DAILY PO 07/05/20 09:00 07/05/20 09:29 Calcium Carbonate (Tums) 1,000 mg Q4HP PRN PO HEARTBURN 07/04/20 23:45 Home Med (Med Rec Complete!) ASDIRECTED XX 06/29/20 14:15 06/29/20 14:17 DC Lorazepam (Ativan) 1 mg Q6HP PRN PO ANXIETY 06/30/20 21:00 07/04/20 21:05 Magnesium Hydroxide (Milk Of Magnesia) 30 ml DAILYPRN PRN PO CONSTIPATION 06/29/20 20:30 Nicotine (Nicoderm Cq 7 Mg) 1 patch DAILYPRN PRN TD NICOTINE WITHDRAWAL 07/02/20 14:45 Olanzapine (ZyPREXA ZYDIS) 5 mg Q4HP PRN PO ANXIETY/AGITATION 06/30/20 21:00 Ondansetron HCl (Zofran Odt) 2 mg Q8HP PRN PO NAUSEA OR VOMITING 07/04/20 23:30 07/04/20 23:55 Ramelteon (Rozerem) 8 mg QHS PRN PO INSOMNIA 07/04/20 23:45 07/04/20 23:55 Trazodone HCl (Desyrel) 50 mg QHSP PRN PO INSOMNIA 06/29/20 20:30 07/04/20 21:06 Allergies Coded Allergies: No Known Allergies (Unverified , 10/07/19) QUENTIN PARHAM DO Jul 05, 2020 09:46
[2020-07-05] MEDS: OMEPRAZOLE 20 MG CAP PO SCH (10:59)
--- NOTE | 2020-07-05 12:08 | MHIPN ---
DATE: 07/03/2020 VITAL SIGNS: Blood pressure 161/74, pulse 84, temperature 98.2. CHIEF COMPLAINT: Says feels better. SUBJECTIVE: Seen for followup. Indicates is doing okay, and that the spirits are reduced, speaks of one main one, then says it bothers him, and moves from his head to his legs. Says sleep has been okay. MENTAL STATUS EXAMINATION: A bit guarded, but cooperative, coherent for the most part, has a reactive affect. Denies any suicidal thoughts or intents. Has the delusions related to the spirits, though they are possibly culturally informed as well. PLAN: Continue current care and observations. He has received Invega Sustenna a couple of days ago at 156 mg. Encourage participation in activities in the [place]. He will be given further recommendations depending on the clinical picture. CYNTHIA
[2020-07-05 16:54] VITALS: BP 131/76
[2020-07-05] MEDS: PALIPERIDONE 3 MG ER TAB (INVEGA) PO SCH (21:20)
[2020-07-06 06:39] VITALS: BP 118/63
[2020-07-06] MEDS: OMEPRAZOLE 20 MG CAP PO SCH (09:27)
--- NOTE | 2020-07-06 13:29 | MHIPNPDOC ---
[facility] Progress Note Progress Note DATE OF SERVICE: 07/06/20 Subjective HPI: Victor Hugo was met with today and reports that the spirits are less problematic today. Patient still has unusual ideation about various spirits going into him, but is notably being more engaged today. MEDICATIONS: He has taken the extra Invega that was helpful making him less anxious and worried. Objective Appearance: Appears to be stated age. Well nourished. Fair hygiene. Behavior: Pleasant. Engaged. Cooperative with good eye contact. Affect: Flat affect. Appropriate to context. Cognition: Fair. Thought Form: Linear and goal directed. Judgement: Mildy improved. Insight: Mildly improved. Assessment F20.9 Schizophrenia, unspecified Plan Continue Invega 3 mg daily, will likely need a higher dose in the next month. Vital Signs Vital Signs Date Time Temp Pulse Resp B/P (MAP) Pulse Ox O2 Delivery O2 Flow Rate FiO2 07/06/20 10:00 Room Air 07/06/20 09:28 86 140/74 07/06/20 06:39 99.4 18 07/04/20 23:37 100 Current Medications Current Medications Medications (Trade) Dose Ordered Sig/Duglas Route PRN Reason Start Time Stop Time Status Last Admin Dose Admin Acetaminophen (Tylenol Tab) 650 mg Q6HP PRN PO HEADACHE or DISCOMFORT 06/29/20 20:30 07/04/20 21:05 Al Hydrox/Mg Hydrox/Simethicone (Mylanta) 30 ml Q4HP PRN PO HEARTBURN/INDIGESTION 06/29/20 20:30 Amlodipine Besylate (Norvasc) 2.5 mg DAILY PO 07/05/20 09:00 07/06/20 09:28 Calcium Carbonate (Tums) 1,000 mg Q4HP PRN PO HEARTBURN 07/04/20 23:45 Home Med (Med Rec Complete!) ASDIRECTED XX 06/29/20 14:15 06/29/20 14:17 DC Lorazepam (Ativan) 1 mg Q6HP PRN PO ANXIETY 06/30/20 21:00 07/04/20 21:05 Magnesium Hydroxide (Milk Of Magnesia) 30 ml DAILYPRN PRN PO CONSTIPATION 06/29/20 20:30 Nicotine (Nicoderm Cq 7 Mg) 1 patch DAILYPRN PRN TD NICOTINE WITHDRAWAL 07/02/20 14:45 Olanzapine (ZyPREXA ZYDIS) 5 mg Q4HP PRN PO ANXIETY/AGITATION 06/30/20 21:00 Omeprazole (PriLOSEC) 40 mg DAILY PO 07/05/20 09:00 07/06/20 09:27 Ondansetron HCl (Zofran Odt) 2 mg Q8HP PRN PO NAUSEA OR VOMITING 07/04/20 23:30 07/04/20 23:55 Paliperidone (Invega) 3 mg QHS PO 07/05/20 21:00 07/05/20 21:20 Ramelteon (Rozerem) 8 mg QHS PRN PO INSOMNIA 07/04/20 23:45 07/04/20 23:55 Trazodone HCl (Desyrel) 50 mg QHSP PRN PO INSOMNIA 06/29/20 20:30 07/04/20 21:06 Allergies Coded Allergies: No Known Allergies (Unverified , 10/07/19) QUENTIN PARHAM DO Jul 06, 2020 13:29
[2020-07-06 16:18] VITALS: BP 106/59
[2020-07-06] MEDS: RAMELTEON 8 MG TAB (ROZEREM) PO PRN (21:18)
[2020-07-06] MEDS: PALIPERIDONE 3 MG ER TAB (INVEGA) PO SCH (21:18)
[2020-07-07 06:39] VITALS: BP 136/84
[2020-07-07] MEDS: OMEPRAZOLE 20 MG CAP PO SCH (09:56)
--- NOTE | 2020-07-07 10:22 | MHIPNPDOC ---
[facility] Progress Note Progress Note DATE OF SERVICE: 07/07/20 Subjective HPI: Victor Hugo presents today for a follow-up visit. He has met with (inaudible) and reports that the spirits do not bother him anymore. Patient also states that he is feeling better, that he has improved, and that things are looking up. He has been isolative and sleepy during the day but otherwise he has been engaged and spends no time talking about any spirits or other unusual topics. Victor Hugo is worried about his car and is trying to set that up. He also reports missing his family. Objective Appearance: Well nourished. Appears to be stated age. Well groomed. Affect: Appropriate to context. Somewhat flat. Thought Form: Linear and goal directed. Thought Content: No evidence of aggressive or homicidal ideation. No evidence of delusions. No evidence of suicidal ideation. No thoughts of self harm. Judgement: Intact as evidenced by decision making in the recent past. Improved. Insight: Good insight into symptoms and treatment options. Improved. Assessment F20.9 Schizophrenia, unspecified Plan Continue 3 mg Invega nightly, plus injectable. Vital Signs Vital Signs Date Time Temp Pulse Resp B/P (MAP) Pulse Ox O2 Delivery O2 Flow Rate FiO2 07/07/20 09:56 88 128/70 07/07/20 06:39 97.0 18 07/06/20 10:00 Room Air 07/04/20 23:37 100 Current Medications Current Medications Medications (Trade) Dose Ordered Sig/Duglas Route PRN Reason Start Time Stop Time Status Last Admin Dose Admin Acetaminophen (Tylenol Tab) 650 mg Q6HP PRN PO HEADACHE or DISCOMFORT 06/29/20 20:30 07/04/20 21:05 Al Hydrox/Mg Hydrox/Simethicone (Mylanta) 30 ml Q4HP PRN PO HEARTBURN/INDIGESTION 06/29/20 20:30 Amlodipine Besylate (Norvasc) 2.5 mg DAILY PO 07/05/20 09:00 07/07/20 09:56 Calcium Carbonate (Tums) 1,000 mg Q4HP PRN PO HEARTBURN 07/04/20 23:45 Home Med (Med Rec Complete!) ASDIRECTED XX 06/29/20 14:15 06/29/20 14:17 DC Lorazepam (Ativan) 1 mg Q6HP PRN PO ANXIETY 06/30/20 21:00 07/04/20 21:05 Magnesium Hydroxide (Milk Of Magnesia) 30 ml DAILYPRN PRN PO CONSTIPATION 06/29/20 20:30 Nicotine (Nicoderm Cq 7 Mg) 1 patch DAILYPRN PRN TD NICOTINE WITHDRAWAL 07/02/20 14:45 Olanzapine (ZyPREXA ZYDIS) 5 mg Q4HP PRN PO ANXIETY/AGITATION 06/30/20 21:00 Omeprazole (PriLOSEC) 40 mg DAILY PO 07/05/20 09:00 07/07/20 09:56 Ondansetron HCl (Zofran Odt) 2 mg Q8HP PRN PO NAUSEA OR VOMITING 07/04/20 23:30 07/04/20 23:55 Paliperidone (Invega) 3 mg QHS PO 07/05/20 21:00 07/06/20 21:18 Ramelteon (Rozerem) 8 mg QHS PRN PO INSOMNIA 07/04/20 23:45 07/06/20 21:18 Trazodone HCl (Desyrel) 50 mg QHSP PRN PO INSOMNIA 06/29/20 20:30 07/04/20 21:06 Allergies Coded Allergies: No Known Allergies (Unverified , 10/07/19) QUENTIN PARHAM DO Jul 07, 2020 10:22
[2020-07-07 16:28] VITALS: BP 135/75
[2020-07-07] MEDS: PALIPERIDONE 3 MG ER TAB (INVEGA) PO SCH (20:41)
[2020-07-08] MEDS: OMEPRAZOLE 20 MG CAP PO SCH (09:35)
--- NOTE | 2020-07-08 11:15 | MHDSPDOC ---
[facility] Discharge Summary Discharge Summary DATE OF ADMISSION: Jun 29, 2020 at 20:25 DATE OF DISCHARGE: Jul 09, 2020 at 13:25 DISCHARGE DIAGNOSES: F20.9 Schizophrenia, unspecified CONSULTANTS INVOLVED:[ None (basic hospitalist screening)] REASON FOR ADMISSION & TREATMENT AND PROGRESS ON THE UNIT : The patient was admitted to the inpatient mental health unit after having inaudible decompensation in his psychotic symptoms. He was admitted and subsequently retried on these medications. Notable problems, however he had been brought in. MEDICATIONS: He was then placed on Invega 156 milligrams. He was given his Invega 156 milligrams again on the 29 of June with little Improvement. He was then placed on 2 milligrams of Invega supplement with significant Improvement returning to a normal mental status exam. No longer endorsing any Bizarre ideation to the staff. He made good progress consistent with invega supplement. He was subsequently triage for discharge, and he was going to be discharged on the day of this note. However, this was delayed due to his inaudible being in [place]. Inaudible was completed, describing the treatment recommendations and recommendation for increased dose for next month as well as supplementation dose. Objective DISCHARGE ASSESSMENT[improved] Legal status considerations: The patient at the time of discharge did not meet criteria for involuntary admission/extension due to having a [normal] mental status exam, [fair] insight into the situation, They are engaged in the discharge process, as well as being friendly and amenable in behavioral control and havent been engaging in any observed concerning behavior or ideation recently. They decline voluntary extension/admission at this time and must be discharged in good [place]ene[place], as Im unable to make a case for holding the patient against their will. They may have historical risk factors of admissions and other interactions with psychiatry however, those are not modifiable from a clinical perspective. The patient will need to be discharged in good ebene[place]. MENTAL STATUS EXAMINATION ON DISCHARGE: [General: Well dressed with good hygiene Speech: Spontaneous and fluid Thought processes: Linear and logical Thought content: Future orientated Abstract reasoning, and computation: Intact Description of associations: Intact Description of abnormal or psychotic thoughts:Denies any suicidal or homicidal ideation. Denies any auditory or visual hallucinations. Does not appear to be responding to internal stimuli. Does not appear to be endorsing any bizarre or paranoid ideation. Judgment: fair Insight: fair Orientation: Alert and orientated 3 Recent and remote memory: Intact Attention span and concentration: Intact Fund of knowledge: Adequate Mood: "okay" Affect: Euthymic with a full range] PLAN/FOLLOWUP ARRANGEMENTS: Follow up appointments made (PCP and MH in 5 days of D/C date) and safety plan completed. Safety Planning aspects completed prior to discharge [Medication supplies limited to 7 days with 4 refills to prevent accumulation to OD] [RN reviewed crisis hotline information and other aspects to empower patient to access care in interim before next appointment.] The amount of time spent in the coordination of care for this patient was approximately 30 minutes. Vital Signs/I&Os Vital Signs Date Time Temp Pulse Resp B/P (MAP) Pulse Ox O2 Delivery O2 Flow Rate FiO2 07/08/20 06:46 97.6 76 16 99 Room Air 07/07/20 16:28 135/75 (95) Medications Scheduled Amlodipine Besylate (Amlodipine Besylate) 2.5 Mg Tablet, 2.5 MG PO DAILY for htn for 7 Days, #7 Paliperidone (Paliperidone ER) 3 Mg Tab.er.24, 3 MG PO QHS for thoughts for 7 D ays, #7 Paliperidone Palmitate (Invega Sustenna) 234 Mg/1.5 Ml Syringe, 1 SYRINGE IM Q30D for thoughts for 30 Days, #1 06/30/20 next due Scheduled PRN Nicotine (Nicotine Patch) 7 Mg Patch.td24, 1 PATCH TD DAILYPRN PRN for NICOTINE WITHDRAWAL for 30 Days, #30 Allergies Coded Allergies: No Known Allergies (Unverified , 10/07/19) QUENTIN PARHAM DO Jul 08, 2020 11:14
[2020-07-08] MEDS ORDERED: NICO7PA TD (11:41)
[2020-07-08] MEDS ORDERED: INVE234I IM (11:41)
[2020-07-08] MEDS ORDERED: PALI1TAB2 PO (11:41)
[2020-07-08] MEDS ORDERED: AMLO25TA PO (11:41)
[2020-07-08 16:47] VITALS: BP 130/73
[2020-07-08] MEDS: PALIPERIDONE 3 MG ER TAB (INVEGA) PO SCH (21:41)
[2020-07-09 06:54] VITALS: BP 135/94
[2020-07-09] MEDS: OMEPRAZOLE 20 MG CAP PO SCH (08:59)
[2020-07-09 09:00] VITALS: BP 137/87
== END 2020-07-09 13:25 | disposition home or self-care (01) | DRG 885 ==
LOC: M ED 09:34 → M ED INP 20:25 → M PSY 23:45
PROVIDERS: ADMIT Psychiatry & Neurology Addiction Medicine; ATTEND Psychiatry & Neurology Addiction Medicine
DX: F20.9 Schizophrenia, unspecified (principal); Z79.899 Other long term (current) drug therapy; F17.200 Nicotine dependence, unspecified, uncomplicated

== ENCOUNTER 2020-09-04 22:49 | Inpatient (IN) | payer OTHER ==
[~2020-09-04] VITALS: Ht 185.4 cm; Wt 112.7 kg
[~2020-09-04 22:49] MED LIST changes: +AMLO25TA PO; +INVE234I IM; +NICO7PA TD; +PALI1TAB2 PO
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
[2020-09-05 00:11] LABS: HEMATOCRIT 47.1 % (42.0-52.0); HEMOGLOBIN 15.9 g/dl (13.5-17.5); MEAN CORPUSCULAR HEMOGLOBIN 30.5 pg (27.0-33.0); MEAN CORPUSCULAR HGB CONC 33.8 g/dl (32.0-36.5); MEAN CORPUSCULAR VOLUME 90.2 fl (80.0-96.0); PLATELET COUNT, AUTOMATED 271 10^3/uL (150-450); RED BLOOD COUNT 5.22 10^6/uL (4.30-6.10); WHITE BLOOD COUNT 6.3 10^3/uL (4.0-10.0)
[2020-09-05 00:32] LABS: AMPHETAMINES LEVEL URINE NEGATIVE (NEGATIVE); BARBITURATES URINE NEGATIVE (NEGATIVE); BENZODIAZEPINES URINE NEGATIVE (NEGATIVE); CANNABINOIDS URINE NEGATIVE (NEGATIVE); COCAINE METABOLITE URINE NEGATIVE (NEGATIVE); METHADONE URINE NEGATIVE (NEGATIVE); OPIATES URINE NEGATIVE (NEGATIVE); PHENCYCLIDINE URINE NEGATIVE (NEGATIVE)
[2020-09-05 00:38] LABS: ACETAMINOPHEN LEVEL < 2.0 UG/ML (10.0-30.0); ALBUMIN 3.7 GM/DL (3.2-5.2); ALT/SGPT 76 U/L (12-78); BILIRUBIN,DIRECT 0.2 MG/DL (0.0-0.2); BILIRUBIN,TOTAL 0.3 MG/DL (0.2-1.0); BLOOD UREA NITROGEN 7 MG/DL (7-18); CALCIUM LEVEL 8.8 MG/DL (8.5-10.1); CARBON DIOXIDE LEVEL 25 MEQ/L (21-32); CHLORIDE LEVEL 105 MEQ/L (98-107); CREATININE FOR GFR 1.11 MG/DL (0.70-1.30); ETHYL ALCOHOL (ETHANOL) 0.187 % (0.000-0.010); GLOMERULAR FILTRATION RATE > 60.0 (>60); GLUCOSE, FASTING 164 MG/DL (70-100); POTASSIUM SERUM 3.7 MEQ/L (3.5-5.1); SALICYLATE LEVEL 4.8 MG/DL (5.0-30.0); SODIUM LEVEL 139 MEQ/L (136-145); TOTAL PROTEIN 8.1 GM/DL (6.4-8.2)
[2020-09-05] MEDS ORDERED: AMLO2.5T3 PO (09:53)
[2020-09-05] MEDS ORDERED: INVE234I IM (09:53)
[2020-09-05] MEDS ORDERED: PALI1TAB2 PO (09:53)
[2020-09-05 10:29] LABS: RSV AMPLIFICATION NEGATIVE (NEGATIVE)
[2020-09-05] MEDS ORDERED: ACETAMINOPHEN TAB 650MG DOSE (2X325MG) PO PRN (11:00)
[2020-09-05] MEDS ORDERED: MAALOX 30 ML SUSP *UDC PO PRN (11:00)
[2020-09-05] MEDS ORDERED: OLANZapine ORAL DISINTEGRATING TAB 5MG PO PRN (11:00)
[2020-09-05] MEDS ORDERED: MOM 30ML SUSPENSION UDC PO PRN (11:00)
[2020-09-05] MEDS ORDERED: traZODone 50 MG TAB PO PRN (11:00)
[2020-09-05] MEDS ORDERED: LORazepam 2 MG TAB PO PRN (11:00)
[2020-09-05] MEDS: FOLIC ACID 1 MG TAB PO SCH (12:13)
[2020-09-05] MEDS: MULTIVITAMINS/MINERALS THERAP 1 TAB PO SCH (12:13)
[2020-09-05] MEDS: THIAMINE 100 MG TAB PO SCH ×2 (12:13→20:57)
[2020-09-05] MEDS: NICOTINE 21MG/24HR 1 EA TRANSDERMAL TD SCH (12:16)
[2020-09-05 13:22] VITALS: BP 133/87
[2020-09-05 21:22] VITALS: BP 150/69
[2020-09-06 06:00] VITALS: BP 131/65
[2020-09-06 06:53] VITALS: BP 131/65
[2020-09-06] MEDS: NICOTINE 21MG/24HR 1 EA TRANSDERMAL TD SCH (09:00)
[2020-09-06] MEDS: MULTIVITAMINS/MINERALS THERAP 1 TAB PO SCH (09:28)
[2020-09-06] MEDS: FOLIC ACID 1 MG TAB PO SCH (09:29)
[2020-09-06] MEDS: THIAMINE 100 MG TAB PO SCH ×2 (09:29→21:43)
--- NOTE | 2020-09-06 10:15 | MHIPNPDOC ---
[facility] Progress Note Progress Note DATE OF SERVICE: 09/06/20 HISTORY: . VITAL SIGNS: See below. NEW TEST RESULTS: . CURRENT MEDICATIONS: See below. MENTAL STATUS EXAMINATION: Patient is a -year old male, who is . Speech: Is . Language skills are . Thought processes including: . Thought content: . Abstract reasoning, and computation: . Description of assoc iations: . Description of abnormal or psychotic thoughts: . Judgment: . Insight: [very limited, good, fair. poor]. Orientation: . Recent and remote memory: . Attention span and concentration: . Language: . Fund of knowledge: . Mood: . Affect: . DIAGNOSES: 1. . 2. . 3. . ASSESSMENT: MANAGEMENT PLAN: . TIME SPENT: minutes. Vital Signs Vital Signs Date Time Temp Pulse Resp B/P (MAP) Pulse Ox O2 Delivery O2 Flow Rate FiO2 09/06/20 06:53 98.7 100 18 131/65 (87) 99 Room Air Current Medications Current Medications Medications (Trade) Dose Ordered Sig/Duglas Route PRN Reason Start Time Stop Time Status Last Admin Dose Admin Acetaminophen (Tylenol Tab) 650 mg Q6HP PRN PO HEADACHE or DISCOMFORT 09/05/20 11:00 Al Hydrox/Mg Hydrox/Simethicone (Mylanta) 30 ml Q4HP PRN PO HEARTBURN/INDIGESTION 09/05/20 11:00 Folic Acid (Folic Acid) 1 mg DAILY PO 09/05/20 09:00 09/06/20 09:29 Home Med (Med Rec Complete!) ASDIRECTED XX 09/05/20 10:15 09/05/20 10:11 DC Lorazepam (Ativan) 2 mg ASDIRECTED PRN PO SEE PROTOCOL 09/05/20 11:00 Magnesium Hydroxide (Milk Of Magnesia) 30 ml DAILYPRN PRN PO CONSTIPATION 09/05/20 11:00 Multivitamins (Theragram-M) 1 tab DAILY PO 09/05/20 09:00 09/06/20 09:28 Nicotine (Nicoderm Cq 21mg) 1 patch DAILY TD 09/05/20 09:00 Olanzapine (ZyPREXA ZYDIS) 5 mg Q4HP PRN PO AGITATION 09/05/20 11:00 Thiamine HCl (Thiamine HCl) 100 mg BID PO 09/05/20 09:00 09/08/20 08:59 09/06/20 09:29 Trazodone HCl (Desyrel) 50 mg QHSP PRN PO INSOMNIA 09/05/20 11:00 Allergies Coded Allergies: No Known Allergies (Unverified , 10/07/19) QUENTIN PARHAM DO Sep 06, 2020 10:15
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
[2020-09-06 18:01] VITALS: BP 164/100
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
[2020-09-06 20:29] LABS: BASO % 0.5 % (0.0-1.0); EOS # 0.3 10^3/uL (0.0-0.5); EOS % 4.6 % (0.0-3.0); HEMATOCRIT 44.6 % (42.0-52.0); HEMOGLOBIN 14.7 g/dl (13.5-17.5); LYMPH # 2.4 10^3/uL (1.5-5.0); LYMPH % 40.4 % (24.0-44.0); MEAN CORPUSCULAR HEMOGLOBIN 30.4 pg (27.0-33.0); MEAN CORPUSCULAR VOLUME 92.1 fl (80.0-96.0); MONO # 0.5 10^3/uL (0.0-0.8); MONO % 7.6 % (0.0-5.0); NEUTROPHILS # 2.8 10^3/uL (1.5-8.5); NEUTROPHILS % 46.7 % (36.0-66.0); PLATELET COUNT, AUTOMATED 284 10^3/uL (150-450); RED BLOOD COUNT 4.84 10^6/uL (4.30-6.10); WHITE BLOOD COUNT 5.9 10^3/uL (4.0-10.0)
[2020-09-06 20:46] LABS: HEMOGLOBIN A1c 5.9 %
[2020-09-06 21:04] LABS: ALBUMIN 3.4 GM/DL (3.2-5.2); ALT/SGPT 78 U/L (12-78); BILIRUBIN,TOTAL 0.4 MG/DL (0.2-1.0); BLOOD UREA NITROGEN 8 MG/DL (7-18); CALCIUM LEVEL 9.1 MG/DL (8.5-10.1); CARBON DIOXIDE LEVEL 27 MEQ/L (21-32); CHLORIDE LEVEL 107 MEQ/L (98-107); CREATININE FOR GFR 1.14 MG/DL (0.70-1.30); GLOMERULAR FILTRATION RATE > 60.0 (>60); GLUCOSE, FASTING 134 MG/DL (70-100); MAGNESIUM LEVEL 2.3 MG/DL (1.8-2.4); PHOSPHORUS LEVEL 3.7 MG/DL (2.5-4.9); POTASSIUM SERUM 4.2 MEQ/L (3.5-5.1); SODIUM LEVEL 139 MEQ/L (136-145); TOTAL PROTEIN 7.4 GM/DL (6.4-8.2)
--- NOTE | 2020-09-06 22:32 | REPVR ---
PROCEDURE INFORMATION: Exam: XR Chest, 1 View Exam date and time: 09/06/2020 9:12 PM Age: 25 years old Clinical indication: Other: Tachycardia TECHNIQUE: Imaging protocol: XR of the chest Views: 1 view. COMPARISON: CR Chest, 2 view PA, Lat 04/21/2020 5:54 PM FINDINGS: Lungs: Unremarkable. No consolidation. Pleural space: Unremarkable. No pleural effusion. No pneumothorax. Heart/Mediastinum: Unremarkable. No cardiomegaly. Bones/joints: Unremarkable. IMPRESSION: No acute findings. Electronically signed by: Franck Cadet On 09/06/2020 22:32:32 PM
[2020-09-07 06:27] VITALS: BP 176/79
[2020-09-07] MEDS: NICOTINE 21MG/24HR 1 EA TRANSDERMAL TD SCH (09:00)
[2020-09-07] MEDS: THIAMINE 100 MG TAB PO SCH ×2 (09:07→19:45)
[2020-09-07] MEDS: MULTIVITAMINS/MINERALS THERAP 1 TAB PO SCH (09:07)
[2020-09-07] MEDS: FOLIC ACID 1 MG TAB PO SCH (09:08)
--- NOTE | 2020-09-07 10:26 | MHIPNPDOC ---
[facility] Progress Note Progress Note DATE OF SERVICE: 09/07/20 HISTORY: The patient is met with today, he reports he is doing well and doesn't hear the spirits. He generally reports that he had been drinking and that he does remember exactly what brought him in, but notes that taking alcohol was a problem for him. He otherwise doesn't have any psychotic symptoms and has been in his room but engages and had gone to groups today, he has no other complaints other than wanting to be discharged having no psychotic symptoms observed today.. VITAL SIGNS: See below. NEW TEST RESULTS: None. CURRENT MEDICATIONS: See below. MENTAL STATUS EXAMINATION: General: Well dressed with good hygiene Speech: Spontaneous and fluid Thought processes: Linear and logical Thought content: Future orientated Abstract reasoning, and computation: Intact Description of associations: Intact Description of abnormal or psychotic thoughts:Denies any suicidal or homicidal ideation. Denies any auditory or visual hallucinations. Does not appear to be responding to internal stimuli. Does not appear to be endorsing any bizarre or paranoid ideation. Judgment: Fair Insight: Fair Orientation: Alert and orientated 3 Recent and remote memory: Intact Attention span and concentration: Intact Fund of knowledge: Adequate Mood: "Fine" Affect: Mildly flat DIAGNOSES: 1. Unspecified psychotic disorder. 2. Alcohol use disorder . 3. . ASSESSMENT: Observed patient overnight if continues to improve will triage for discharge MANAGEMENT PLAN: Continue in Sims current dose no changes. TIME SPENT: 15 minutes. Vital Signs Vital Signs Date Time Temp Pulse Resp B/P (MAP) Pulse Ox O2 Delivery O2 Flow Rate FiO2 09/07/20 06:27 98.6 98 16 176/79 (111) 96 Room Air Laboratory Data 24H Labs Laboratory Tests 2 09/06/20 20:19: Immature Granulocyte % (Auto) 0.2, Neutrophils (%) (Auto) 46.7, Lymphocytes (%) (Auto) 40.4, Monocytes (%) (Auto) 7.6H, Eosinophils (%) (Auto) 4.6H, Basophils (%) (Auto) 0.5, Neutrophils # (Auto) 2.8, Lymphocytes # (Auto) 2.4, Monocytes # (Auto) 0.5, Eosinophils # (Auto) 0.3, Basophils # (Auto) 0.0, Nucleated Red Blood Cells % (auto) 0.0, Anion Gap 5L, Glomerular Filtration Rate > 60.0, Estimated Mean Plasma Glucose 123H, Hemoglobin A1c 5.9, Calcium Level 9.1, Phosphorus Level 3.7, Magnesium Level 2.3, Total Bilirubin 0.4, Aspartate Amino Transf (AST/SGOT) 28, Alanine Aminotransferase (ALT/SGPT) 78, Alkaline Phosphatase 70, Total Protein 7.4, Albumin 3.4, Albumin/Globulin Ratio 0.9 CBC/BMP Laboratory Tests 09/06/20 20:19 Current Medications Current Medications Medications (Trade) Dose Ordered Sig/Duglas Route PRN Reason Start Time Stop Time Status Last Admin Dose Admin Acetaminophen (Tylenol Tab) 650 mg Q6HP PRN PO HEADACHE or DISCOMFORT 09/05/20 11:00 Al Hydrox/Mg Hydrox/Simethicone (Mylanta) 30 ml Q4HP PRN PO HEARTBURN/INDIGESTION 09/05/20 11:00 Amlodipine Besylate (Norvasc) 2.5 mg DAILY PO 09/07/20 09:00 09/07/20 09:08 Folic Acid (Folic Acid) 1 mg DAILY PO 09/05/20 09:00 09/07/20 09:08 Home Med (Med Rec Complete!) ASDIRECTED XX 09/05/20 10:15 09/05/20 10:11 DC Lorazepam (Ativan) 2 mg ASDIRECTED PRN PO SEE PROTOCOL 09/05/20 11:00 Magnesium Hydroxide (Milk Of Magnesia) 30 ml DAILYPRN PRN PO CONSTIPATION 09/05/20 11:00 Multivitamins (Theragram-M) 1 tab DAILY PO 09/05/20 09:00 09/07/20 09:07 Nicotine (Nicoderm Cq 21mg) 1 patch DAILY TD 09/05/20 09:00 Olanzapine (ZyPREXA ZYDIS) 5 mg Q4HP PRN PO AGITATION 09/05/20 11:00 Thiamine HCl (Thiamine HCl) 100 mg BID PO 09/05/20 09:00 09/08/20 08:59 09/07/20 09:07 Trazodone HCl (Desyrel) 50 mg QHSP PRN PO INSOMNIA 09/05/20 11:00 Allergies Coded Allergies: No Known Allergies (Unverified , 10/07/19) QUENTIN PARHAM DO Sep 07, 2020 10:25
[2020-09-07 18:00] VITALS: BP 166/88
--- NOTE | 2020-09-08 05:51 | ECGEPIP ---
[facility] Test Date: 2020-09-06 Pat Name: MICKEY YE Department: Room: [place] [address] Gender: Male [employer]ing [employer] Tender: : 1995 Requested By: KENDRA KAUR Order Number: [id number] Reading MD: Lonnie Briseno Measurements Intervals [place] Rate: 100 P: 54 WV: 141 QRS: 64 QRSD: 159 T: 32 QT: 387 QTc: 501 Interpretive Statements Sinus tachycardia at 100 bpm Right bundle branch block Except for faster heart rate, no significant change since April 2020 Electronically Signed on 09-08-2020 5:51:00 EST by Lonnie Briseno
[2020-09-08 05:55] VITALS: BP 149/88
[2020-09-08] MEDS: NICOTINE 21MG/24HR 1 EA TRANSDERMAL TD SCH (08:44)
[2020-09-08] MEDS: MULTIVITAMINS/MINERALS THERAP 1 TAB PO SCH (08:45)
[2020-09-08] MEDS: FOLIC ACID 1 MG TAB PO SCH (08:47)
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
[2020-09-08] MEDS ORDERED: PALI1TAB2 PO (10:36)
[2020-09-08] MEDS ORDERED: NICO21PAT TD (10:36)
[2020-09-08] MEDS ORDERED: AMLO2.5T3 PO (10:36)
== END 2020-09-08 13:20 | disposition home or self-care (01) | DRG 885 ==
LOC: M ED 22:49 → M ED INP 09-05 10:57 → M PSY 09-05 13:20
PROVIDERS: ADMIT Psychiatry & Neurology Addiction Medicine; ATTEND Psychiatry & Neurology Addiction Medicine
DX: F29 Unspecified psychosis not due to a substance or known physiological condition (principal); F10.10 Alcohol abuse, uncomplicated; Z79.899 Other long term (current) drug therapy; F17.200 Nicotine dependence, unspecified, uncomplicated; I10 Essential (primary) hypertension; R00.0 Tachycardia, unspecified; E11.9 Type 2 diabetes mellitus without complications

== ENCOUNTER → 2020-09-14 | Outpatient (CLI) | payer OTHER ==
[~2020-09-14] MED LIST changes: +AMLO2.5T3 PO
--- NOTE | 2020-09-14 08:30 | REP ---
INDICATION: RULE OUT PROLACTINOMA. COMPARISON: Comparison is made with head CT study from September 04, 2020 and January 14, 2020.. TECHNIQUE: Axial and sagittal imaging planes are utilized for T1 and T2-weighted scans. Sequences include spin-echo, fast spin echo, FLAIR, and diffusion weighted sequences. FINDINGS: No bony calvarial lesion is seen. Craniocervical junction and upper cervical cord are normal in appearance. There is no MR evidence of significant paranasal sinus disease. No intraorbital abnormality is seen. The lateral, third, and fourth ventricles are normal in size and position. Garcia-white differentiation pattern is intact above and below the tentorium. There is no evidence of intracranial hemorrhage. No mass, infarction, extra-axial fluid collection or midline shift is seen. No abnormal white matter lesion is seen. The sella turcica is not enlarged. The 2 a Anjana gland is normal in size. Suprasellar cistern is clear. IMPRESSION: Negative noncontrast brain MRI study. <Electronically signed by Horace Torres > 09/14/20 [id number]
== END ==
LOC: M RAD 06:54
PROVIDERS: ATTEND Family Medicine
DX: E22.1 Hyperprolactinemia (principal)

== ENCOUNTER → 2020-12-19 | Outpatient (CLI) | payer OTHER ==
--- NOTE | 2020-12-20 16:58 | SLEEPCENT ---
NOCTURNAL POLYSOMNOGRAPHY DATE: 12/19/2020 ORDERED BY: DILMA Boss Nocturnal polysomnography was performed for evaluation of sleep physiology in this patient with excessive somnolence and nonrestorative sleep. 7 hours and 17 minutes of data were reviewed. There were 317.5 minutes of sleep identified. Sleep latency was prolonged at 53 minutes. REM latency was short at 45.5 minutes. Sleep architecture showed fragmentation. There were four REM cycles noted. Overall sleep efficiency was 73.1%. The electrocardiogram showed a sinus rhythm with an interventricular conduction delay. Average heart rate of 85 beats per minute. EEG showed reasonably normal waveforms for wake and sleep. There were 392 respiratory events identified of 10 seconds in duration or greater for an apnea-hypopnea index of 74.1. The events were primarily obstructive, not exclusive to sleep stage nor posture. Arousals from respiratory events occurred 5.5 times and oxygen desaturations were seen into the 80s. There was some limb activity also noted in the EMG leads. Limb movement arousal index was 1.7. IMPRESSION: Severe obstructive sleep apnea syndrome (G47.33), apnea-hypopnea index 74.1. RECOMMENDATION: The patient should be encouraged to return to the [facility] at his earliest convenience for pressure therapy. In the interim, alcohol and sedative avoidance should be practiced and caution exercised during the operation of motor vehicles.
== END ==
LOC: M SLEEP 20:00
PROVIDERS: ATTEND Nurse Practitioner Family
DX: G47.33 Obstructive sleep apnea (adult) (pediatric) (principal)